=== PATIENT | female | born 1945 | race Two or more races ===

== ENCOUNTER 2017-03-24 11:07 | Emergency (ER) | payer MEDICAID, MEDICARE ==
[~2017-03-24] VITALS: Ht 170.2 cm; Wt 87.1 kg
[~2017-03-24 11:07] MED LIST: ASPI-247; OYSCO-500 TABLET; SIMV-8; TRIA37.575; [UNRECOGNIZED DRUG - CODE]
[2017-03-24 11:20] VITALS: BP 121/76
[2017-03-24] MEDS ORDERED: KETOROLAC TROMETH 30 MG/ML 1ML VIAL IM ONE (11:30)
== END 2017-03-24 13:15 | disposition home or self-care (01) ==
LOC: ER 11:32
DX: S16.1XXA Strain of muscle, fascia and tendon at neck level, initial encounter (principal); M47.892 Other spondylosis, cervical region; M47.896 Other spondylosis, lumbar region; E78.5 Hyperlipidemia, unspecified; I10 Essential (primary) hypertension; W19.XXXA Unspecified fall, initial encounter; Y93.89 Activity, other specified; Y99.8 Other external cause status; Y92.89 Other specified places as the place of occurrence of the external cause; Z79.82 Long term (current) use of aspirin
CPT/HCPCS: 72040; 72220; 96372; 99284; J1885

== ENCOUNTER 2017-09-03 15:01 | Emergency (ER) | payer OTHER, MEDICAID ==
[~2017-09-03] VITALS: Ht 170.2 cm; Wt 88.5 kg
[2017-09-03 15:36] VITALS: BP 125/67
== END 2017-09-03 16:03 | disposition home or self-care (01) ==
LOC: ER 15:08
DX: L01.00 Impetigo, unspecified (principal); E78.5 Hyperlipidemia, unspecified; I10 Essential (primary) hypertension; Z90.710 Acquired absence of both cervix and uterus

== ENCOUNTER 2019-05-13 17:48 | Emergency (ER) | payer OTHER, MEDICAID ==
[~2019-05-13] VITALS: Ht 172.7 cm; Wt 84.4 kg
[~2019-05-13 17:48] MED LIST changes: +TRIA37.55; -TRIA37.575
[2019-05-13 17:59] VITALS: BP 128/84
[2019-05-14] MEDS ORDERED: ACETAMINOPHEN 325 MG TAB PO ONE (01:15)
== END 2019-05-14 01:39 | disposition home or self-care (01) ==
LOC: ER 17:57
DX: M54.5 Low back pain (principal); M25.552 Pain in left hip; M25.551 Pain in right hip; E78.5 Hyperlipidemia, unspecified; I10 Essential (primary) hypertension; Z90.710 Acquired absence of both cervix and uterus; Z79.82 Long term (current) use of aspirin; Z79.899 Other long term (current) drug therapy; W10.8XXA Fall (on) (from) other stairs and steps, initial encounter; Y93.89 Activity, other specified; Y99.8 Other external cause status; Y92.89 Other specified places as the place of occurrence of the external cause
CPT/HCPCS: 72100; 73502; 73560

== ENCOUNTER → 2020-02-28 | Emergency (ER) | payer OTHER, MEDICAID ==
[~2020-02-28] VITALS: Ht 170.2 cm; Wt 81.6 kg
[~2020-02-28] MED LIST changes: +HYDROcodone-ACET 5/325MG TAB PO ONE
[2020-02-28 18:10] LABS: Basophils # (auto) 0.1 10 ^3/uL (0-0.2); Basophils % (auto) 0.8 % (0.0-2.0); Eosinophils # (auto) 0.1 10 ^3/uL (0-0.8); Hematocrit 40.2 % (36.0-46.0); Hemoglobin 13.6 g/dL (12.2-16.2); Lymphocytes % (auto) 29.8 % (10.0-50.0); Mean Corpuscular Hemoglobin 29.4 pg (28.0-32.0); Mean Corpuscular Volume 86.6 fL (80.0-100.0); Monocytes # (auto) 0.5 10 ^3/uL (0-1.3); Monocytes % (auto) 7.1 % (0.0-12.0); Neutrophils % (auto) 60.3 % (37.0-80.0); Nucleated Red Blood Cells % 0.1 %; Platelet Count (auto) 185 10^3/uL (140-450); Red Blood Cells 4.64 10^6/uL (4.0-5.20); Red Cell Distribution Width 14.6 % (11.8-14.3); White Blood Cell 6.6 10^3/uL (4.4-10.8)
[2020-02-28 18:30] LABS: Albumin 3.6 g/dL (3.4-5.0); Calcium 9.2 mg/dL (8.5-10.1); Potassium 3.2 mmol/L (3.5-5.1)
[2020-02-28 18:33] LABS: BUN/Creatinine Ratio 20.5; Bilirubin, Total 0.6 mg/dL (0.2-1.0); Total Protein 7.1 g/dL (6.4-8.2)
[2020-02-28 19:28] LABS: Urine Bacteria NONE SEEN /hpf (None Seen); Urine Blood Negative /uL (Negative); Urine Specific Gravity 1.007 (1.001-1.035); Urine WBC 2 /hpf (0 - 5)
[2020-02-28 22:15] VITALS: BP 122/60
== END | disposition home or self-care (01) ==
LOC: EDUNIT# 17:36 → ER 17:46 → EDBD 17:46
DX: S70.01XA Contusion of right hip, initial encounter (principal); J44.9 Chronic obstructive pulmonary disease, unspecified; E78.5 Hyperlipidemia, unspecified; I10 Essential (primary) hypertension; Z90.710 Acquired absence of both cervix and uterus; W01.0XXA Fall on same level from slipping, tripping and stumbling without subsequent striking against object, initial encounter; Y93.89 Activity, other specified; Y92.89 Other specified places as the place of occurrence of the external cause; Y99.8 Other external cause status
CPT/HCPCS: 36415; 73502; 80053; 81001; 85025

== ENCOUNTER 2020-10-23 14:45 | Inpatient (IN) | payer OTHER, MEDICAID ==
[~2020-10-23] VITALS: Ht 170.2 cm; Wt 75.9 kg
[~2020-10-23 14:45] MED LIST changes: -HYDROcodone-ACET 5/325MG TAB PO ONE
[2020-10-23] MEDS ORDERED: ZINC SULFATE 220mg CAP or TAB PO ONE (15:00)
[2020-10-23] MEDS ORDERED: DexAMETHasone SOD PHOS 10MG/1ML VIAL INJ IV ONE (15:00)
[2020-10-23] MEDS ORDERED: ASCORBIC ACID 500 MG TAB PO ONE (15:00)
[2020-10-23] MEDS ORDERED: DOXYCYCLINE 100MG/250ML 250 ML IV ONE (15:00)
[2020-10-23 15:59] LABS: Basophils # (auto) 0 10 ^3/uL (0-0.2); Basophils % (auto) 0.1 % (0.0-2.0); Eosinophils # (auto) 0 10 ^3/uL (0-0.8); Hematocrit 39.1 % (36.0-46.0); Hemoglobin 13.6 g/dL (12.2-16.2); Lymphocytes # (auto) 0.9 10 ^3/uL (0.4-5.4); Lymphocytes % (auto) 8.2 % (10.0-50.0); Mean Corpuscular Hemoglobin 28.5 pg (28.0-32.0); Mean Corpuscular Hgb Conc. 34.6 g/dL (32.0-36.0); Mean Corpuscular Volume 82.1 fL (80.0-100.0); Monocytes # (auto) 0.2 10 ^3/uL (0-1.3); Monocytes % (auto) 1.9 % (0.0-12.0); Neutrophils # (auto) 9.3 10 ^3/uL (1.6-8.6); Neutrophils % (auto) 89.8 % (37.0-80.0); Platelet Count (auto) 318 10^3/uL (140-450); Red Blood Cells 4.76 10^6/uL (4.0-5.20); Red Cell Distribution Width 13.4 % (11.8-14.3); White Blood Cell 10.4 10^3/uL (4.4-10.8)
[2020-10-23 16:24] LABS: Albumin 2.7 g/dL (3.4-5.0); Anion Gap 11 (5-15); Blood Urea Nitrogen 7 mg/dL (7-18); Calcium 8.6 mg/dL (8.5-10.1); Carbon Dioxide 27 mmol/L (21-32); Chloride 90 mmol/L (98-107); Glucose 166 mg/dL (74-106); Sodium 128 mmol/L (136-145)
[2020-10-23] MEDS ORDERED: ONDANSETRON HCL 4 MG/2 ML VIAL ONE (16:28)
[2020-10-23 16:33] LABS: Alanine Aminotransferase 53 U/L (13-56); Alkaline Phosphatase 97 U/L (45-117); Aspartate Aminotransferase 54 U/L (15-37); Bilirubin, Total 1.1 mg/dL (0.2-1.0); GFR African American 92 mL/min; GFR Non-African American 76 mL/min; Lactate Dehydrogenase 416 U/L (84-246); Total Protein 7.5 g/dL (6.4-8.2)
[2020-10-23 16:45] LABS: CRP High Sensitivity > 19.0 mg/dL (< 0.3)
[2020-10-23] MEDS ORDERED: ONDANSETRON HCL 4 MG/2 ML VIAL IV ONE (16:45)
[2020-10-23 16:47] LABS: Potassium 2.6 mmol/L (3.5-5.1)
[2020-10-23] MEDS ORDERED: POTASSIUM CHLORIDE 40 MEQ, LIDOCAINE 1% (LOCAL ANESTH.) 4 ML in SODIUM CHL 0.9% 250 ML IV ONE (17:00)
[2020-10-23] MEDS ORDERED: POTASSIUM EFFERVESENT TAB 25 MEQ PO ONE (17:30)
[2020-10-23] MEDS ORDERED: REMDESIVIR PER PHARMACY IV SCH (17:30)
[2020-10-23] MEDS ORDERED: ACETAMINOPHEN 500 MG TAB PO PRN (17:30)
[2020-10-23] MEDS ORDERED: NITROGLYCERIN 0.4 MG SL TAB SL PRN (17:30)
[2020-10-23] MEDS ORDERED: MORPHINE SULF INJ 2 MG/ML SYRINGE 1ML IV PRN (17:30)
[2020-10-23] MEDS ORDERED: REMDESIVIR 200 MG in NS 210ml LOADING DOSE ADULT IV ONE (20:00)
[2020-10-23 20:57] LABS: Cholesterol 75 mg/dL (< 200); HDL Cholesterol 25 mg/dL (40-59); LDL Cholesterol 46 mg/dL (< 100); Triglycerides 81 mg/dL (< 150)
[2020-10-23] MEDS: ALBUTEROL SULF HFA 90MCG INH 200DOSE IN SCH (21:40)
[2020-10-23] MEDS: BUDESONIDE (INHALATION) 180 MCG IH IN SCH (21:40)
[2020-10-23] MEDS: DOXYCYCLINE 100MG/250ML 250 ML IV SCH (22:06)
[2020-10-24] VITALS: BP 117/55
[2020-10-24 02:59] VITALS: BP 124/49
[2020-10-24 03:15] VITALS: BP 118/55
[2020-10-24 03:45] VITALS: BP 112/55
[2020-10-24 04:30] VITALS: BP 117/53
[2020-10-24] MEDS: BUDESONIDE (INHALATION) 180 MCG IH IN SCH ×2 (07:00→22:37)
[2020-10-24] MEDS: ALBUTEROL SULF HFA 90MCG INH 200DOSE IN SCH ×3 (07:00→22:37)
[2020-10-24 08:37] LABS: Basophils # (auto) 0 10 ^3/uL (0-0.2); Basophils % (auto) 0.1 % (0.0-2.0); Eosinophils # (auto) 0 10 ^3/uL (0-0.8); Hematocrit 35.6 % (36.0-46.0); Hemoglobin 11.9 g/dL (12.2-16.2); Lymphocytes # (auto) 0.5 10 ^3/uL (0.4-5.4); Lymphocytes % (auto) 6.6 % (10.0-50.0); Mean Corpuscular Hemoglobin 27.9 pg (28.0-32.0); Mean Corpuscular Hgb Conc. 33.5 g/dL (32.0-36.0); Mean Corpuscular Volume 83.4 fL (80.0-100.0); Monocytes # (auto) 0.2 10 ^3/uL (0-1.3); Monocytes % (auto) 3.1 % (0.0-12.0); Neutrophils # (auto) 6.3 10 ^3/uL (1.6-8.6); Neutrophils % (auto) 90.2 % (37.0-80.0); Platelet Count (auto) 315 10^3/uL (140-450); Red Blood Cells 4.27 10^6/uL (4.0-5.20); Red Cell Distribution Width 13.7 % (11.8-14.3)
[2020-10-24] MEDS ORDERED: cefTRIAXone 1GM/50ML D5W 50 ML IV SCH (09:00)
[2020-10-24 09:02] LABS: Albumin 2.4 g/dL (3.4-5.0); Potassium 3.8 mmol/L (3.5-5.1)
[2020-10-24 09:08] LABS: BUN/Creatinine Ratio 15.5; Bilirubin, Total 0.6 mg/dL (0.2-1.0); Total Protein 6.6 g/dL (6.4-8.2)
[2020-10-24] MEDS ORDERED: ENOXAPARIN SOD 40 MG/0.4 ML SYRINGE SC SCH (10:00)
[2020-10-24] MEDS: ASCORBIC ACID 1,000 MG TAB PO SCH (10:43)
[2020-10-24] MEDS: ZINC SULFATE 220mg CAP or TAB PO SCH (10:43)
[2020-10-24] MEDS: DexAMETHasone SOD PHOS 10MG/1ML VIAL INJ IV SCH (10:43)
[2020-10-24] MEDS: DOXYCYCLINE 100MG/250ML 250 ML IV SCH (10:43)
[2020-10-24] MEDS: CHOLECALCIFEROL (VITD3) 2,000 UNIT CAP PO SCH (10:43)
[2020-10-24] MEDS: guaiFENesin-CODEINE Liq 5 ML UD PO PRN ×2 (13:28→21:20)
[2020-10-24] MEDS ORDERED: VANCOMYCIN PER PHARMACY 0 MG IV SCH ×2 (14:30→14:45)
[2020-10-24] MEDS ORDERED: PIPERACILLIN-TAZOB 3.375GM 100 ML IV ONE ×2 (14:30→14:45)
[2020-10-24] MEDS: REMDESIVIR 100mg in NS 230ml DAILYx4DAYS (NO VENT) IV SCH (17:25)
[2020-10-24] MEDS ORDERED: MORPHINE SULF INJ 2 MG/ML SYRINGE 1ML IV PRN (17:45)
[2020-10-24] MEDS ORDERED: HYDROcodone-ACET 5/325MG TAB PO PRN (17:45)
[2020-10-24] MEDS ORDERED: MORPHINE SULF INJ 2 MG/ML SYRINGE 1ML ONE (17:52)
[2020-10-24] MEDS: VANCOMYCIN 1GM/250ML 250 ML IV SCH (20:28)
[2020-10-24] MEDS ORDERED: ATORVASTATIN 20 MG TAB PO SCH (22:00)
[2020-10-24] MEDS: FAMOTIDINE (10MG/ML) 2ML VL IV SCH (22:15)
[2020-10-24] MEDS: ENOXAPARIN SOD 40 MG/0.4 ML SYRINGE SC SCH (22:15)
[2020-10-24] MEDS ORDERED: SODIUM BICARBONATE 8.4% INJ 50ML SYRINGE ONE (23:10)
[2020-10-24] MEDS: PIPERACILLIN-TAZOB 3.375GM 100 ML IV SCH (23:56)
[2020-10-25] MEDS ORDERED: PIPERACILLIN-TAZOB 3.375GM 100 ML IV SCH
[2020-10-25] MEDS: PIPERACILLIN-TAZOB 3.375GM 100 ML IV SCH ×3 (05:54→17:36)
[2020-10-25 06:39] LABS: Urine Bacteria NONE SEEN /hpf (None Seen); Urine Blood Negative /uL (Negative); Urine WBC 2 /hpf (0 - 5)
[2020-10-25] MEDS: BUDESONIDE (INHALATION) 180 MCG IH IN SCH ×2 (07:10→22:14)
[2020-10-25] MEDS: ALBUTEROL SULF HFA 90MCG INH 200DOSE IN SCH ×3 (07:10→22:14)
[2020-10-25 08:03] LABS: Albumin 2.3 g/dL (3.4-5.0); Calcium 9.2 mg/dL (8.5-10.1); Potassium 3.6 mmol/L (3.5-5.1)
[2020-10-25 08:06] LABS: BUN/Creatinine Ratio 24.6; Bilirubin, Total 0.5 mg/dL (0.2-1.0); Total Protein 6.6 g/dL (6.4-8.2)
[2020-10-25] MEDS: VANCOMYCIN 1GM/250ML 250 ML IV SCH (08:20)
[2020-10-25 09:27] LABS: Free T4 (Free Thyroxine) 1.33 ng/dL (0.89-1.76); T3 Total 0.53 ng/mL (0.60-1.81)
[2020-10-25] MEDS ORDERED: ASPirin 81 mg TAB PO SCH (10:00)
[2020-10-25] MEDS: ASCORBIC ACID 1,000 MG TAB PO SCH (10:20)
[2020-10-25] MEDS: FAMOTIDINE (10MG/ML) 2ML VL IV SCH ×2 (10:20→22:27)
[2020-10-25] MEDS: ENOXAPARIN SOD 40 MG/0.4 ML SYRINGE SC SCH (10:20)
[2020-10-25] MEDS: ZINC SULFATE 220mg CAP or TAB PO SCH (10:20)
[2020-10-25] MEDS: CHOLECALCIFEROL (VITD3) 2,000 UNIT CAP PO SCH (10:20)
[2020-10-25] MEDS: DexAMETHasone SOD PHOS 10MG/1ML VIAL INJ IV SCH (10:20)
[2020-10-25] MEDS ORDERED: FUROSEMIDE 20 MG/2 ML VIAL IV ONE (16:45)
[2020-10-25] MEDS ORDERED: POTASSIUM CHL 10 Meq TABLET PO ONE (16:45)
[2020-10-25] MEDS ORDERED: DEXTROSE (50%) 50ML SYRG IV PRN (16:45)
[2020-10-25] MEDS: REMDESIVIR 100mg in NS 230ml DAILYx4DAYS (NO VENT) IV SCH (17:08)
[2020-10-25] MEDS: InsuLIN REG 1unit/0.01ml Soln (100units/ml) SC SCH ×2 (17:28→22:33)
[2020-10-25] MEDS: ACCU-CHEK COMFORT CURVE STRIP VI SCH ×2 (17:28→22:27)
[2020-10-25] MEDS ORDERED: IOHEXOL 350 MG/ML 100ML IJ ONE (17:58)
[2020-10-25] MEDS: ENOXAPARIN SOD 80 MG/0.8ML SYRINGE SC SCH (22:27)
[2020-10-25] MEDS: guaiFENesin-CODEINE Liq 5 ML UD PO PRN (23:13)
[2020-10-26] MEDS: PIPERACILLIN-TAZOB 3.375GM 100 ML IV SCH ×4 (00:41→18:00)
[2020-10-26] MEDS: BUDESONIDE (INHALATION) 180 MCG IH IN SCH ×2 (06:25→21:14)
[2020-10-26] MEDS: ALBUTEROL SULF HFA 90MCG INH 200DOSE IN SCH ×2 (06:25→21:14)
[2020-10-26 06:30] LABS: Potassium 3.4 mmol/L (3.5-5.1)
[2020-10-26 06:38] LABS: Albumin 2.4 g/dL (3.4-5.0); BUN/Creatinine Ratio 28.9; Bilirubin, Total 0.6 mg/dL (0.2-1.0); Calcium 9.2 mg/dL (8.5-10.1); Magnesium 2.5 mg/dL (1.6-2.6); Total Protein 6.3 g/dL (6.4-8.2)
[2020-10-26] MEDS: InsuLIN REG 1unit/0.01ml Soln (100units/ml) SC SCH ×3 (07:01→23:54)
[2020-10-26] MEDS: ACCU-CHEK COMFORT CURVE STRIP VI SCH ×3 (07:01→23:19)
[2020-10-26] MEDS: DexAMETHasone SOD PHOS 10MG/1ML VIAL INJ IV SCH (12:40)
[2020-10-26] MEDS: FUROSEMIDE 20 MG/2 ML VIAL IV SCH (12:41)
[2020-10-26] MEDS: ZINC SULFATE 220mg CAP or TAB PO SCH (12:41)
[2020-10-26] MEDS: CHOLECALCIFEROL (VITD3) 2,000 UNIT CAP PO SCH (12:43)
[2020-10-26] MEDS: FAMOTIDINE (10MG/ML) 2ML VL IV SCH ×2 (12:43→23:19)
[2020-10-26] MEDS: ASCORBIC ACID 1,000 MG TAB PO SCH (12:43)
[2020-10-26] MEDS: POTASSIUM CHL 10 Meq TABLET PO SCH (12:43)
[2020-10-26] MEDS: ENOXAPARIN SOD 80 MG/0.8ML SYRINGE SC SCH ×2 (13:00→23:19)
[2020-10-26] MEDS ORDERED: POTASSIUM CHL 20 Meq TABLET PO ONE (16:45)
[2020-10-26] MEDS: REMDESIVIR 100mg in NS 230ml DAILYx4DAYS (NO VENT) IV SCH (16:54)
[2020-10-27] MEDS: PIPERACILLIN-TAZOB 3.375GM 100 ML IV SCH ×4 (00:56→20:13)
[2020-10-27] MEDS: ALBUTEROL SULF HFA 90MCG INH 200DOSE IN SCH ×2 (06:00→22:42)
[2020-10-27 06:05] LABS: Basophils # (auto) 0 10 ^3/uL (0-0.2); Basophils % (auto) 0.4 % (0.0-2.0); Eosinophils # (auto) 0 10 ^3/uL (0-0.8); Hematocrit 38.5 % (36.0-46.0); Hemoglobin 12.9 g/dL (12.2-16.2); Lymphocytes # (auto) 0.8 10 ^3/uL (0.4-5.4); Lymphocytes % (auto) 11.7 % (10.0-50.0); Mean Corpuscular Hemoglobin 27.9 pg (28.0-32.0); Mean Corpuscular Hgb Conc. 33.5 g/dL (32.0-36.0); Mean Corpuscular Volume 83.3 fL (80.0-100.0); Monocytes # (auto) 0.5 10 ^3/uL (0-1.3); Monocytes % (auto) 6.3 % (0.0-12.0); Neutrophils # (auto) 5.9 10 ^3/uL (1.6-8.6); Neutrophils % (auto) 81.6 % (37.0-80.0); Platelet Count (auto) 467 10^3/uL (140-450); Red Blood Cells 4.62 10^6/uL (4.0-5.20); Red Cell Distribution Width 13.7 % (11.8-14.3); White Blood Cell 7.2 10^3/uL (4.4-10.8)
[2020-10-27 06:12] LABS: INR 1.28 (0.9-1.15)
[2020-10-27 06:36] LABS: Potassium 3.6 mmol/L (3.5-5.1)
[2020-10-27 06:44] LABS: BUN/Creatinine Ratio 33.3; Calcium 9.1 mg/dL (8.5-10.1)
[2020-10-27] MEDS: ACCU-CHEK COMFORT CURVE STRIP VI SCH ×4 (07:00→21:57)
[2020-10-27] MEDS: InsuLIN REG 1unit/0.01ml Soln (100units/ml) SC SCH ×4 (07:00→21:56)
[2020-10-27] MEDS: BUDESONIDE (INHALATION) 180 MCG IH IN SCH ×2 (07:06→22:42)
[2020-10-27] MEDS: CHOLECALCIFEROL (VITD3) 2,000 UNIT CAP PO SCH (10:00)
[2020-10-27] MEDS: ZINC SULFATE 220mg CAP or TAB PO SCH (10:00)
[2020-10-27] MEDS: FAMOTIDINE (10MG/ML) 2ML VL IV SCH ×2 (10:00→21:58)
[2020-10-27] MEDS: DexAMETHasone SOD PHOS 10MG/1ML VIAL INJ IV SCH (10:00)
[2020-10-27] MEDS: ASCORBIC ACID 1,000 MG TAB PO SCH (10:00)
[2020-10-27] MEDS: FUROSEMIDE 20 MG/2 ML VIAL IV SCH (10:00)
[2020-10-27] MEDS: ENOXAPARIN SOD 80 MG/0.8ML SYRINGE SC SCH ×2 (10:00→21:57)
[2020-10-27] MEDS: POTASSIUM CHL 10 Meq TABLET PO SCH (10:00)
[2020-10-27] MEDS: REMDESIVIR 100mg in NS 230ml DAILYx4DAYS (NO VENT) IV SCH (17:31)
[2020-10-27] MEDS: guaiFENesin-CODEINE Liq 5 ML UD PO PRN (23:17)
[2020-10-28] MEDS: PIPERACILLIN-TAZOB 3.375GM 100 ML IV SCH ×4 (01:57→18:09)
[2020-10-28] MEDS: BUDESONIDE (INHALATION) 180 MCG IH IN SCH ×3 (02:29→19:41)
[2020-10-28 03:00] VITALS: BP 148/76
[2020-10-28] MEDS: ALBUTEROL SULF HFA 90MCG INH 200DOSE IN SCH (06:00)
[2020-10-28] MEDS: InsuLIN REG 1unit/0.01ml Soln (100units/ml) SC SCH ×4 (06:20→22:17)
[2020-10-28] MEDS: ACCU-CHEK COMFORT CURVE STRIP VI SCH ×4 (06:20→21:16)
[2020-10-28] MEDS: FUROSEMIDE 20 MG/2 ML VIAL IV SCH (10:42)
[2020-10-28] MEDS: ENOXAPARIN SOD 80 MG/0.8ML SYRINGE SC SCH ×2 (10:43→21:16)
[2020-10-28] MEDS: POTASSIUM CHL 10 Meq TABLET PO SCH (10:43)
[2020-10-28] MEDS: ASCORBIC ACID 1,000 MG TAB PO SCH (10:43)
[2020-10-28] MEDS: CHOLECALCIFEROL (VITD3) 2,000 UNIT CAP PO SCH (10:43)
[2020-10-28] MEDS: FAMOTIDINE (10MG/ML) 2ML VL IV SCH ×2 (10:43→21:17)
[2020-10-28] MEDS: ZINC SULFATE 220mg CAP or TAB PO SCH (10:43)
[2020-10-28] MEDS ORDERED: ALBUTEROL SULF HFA 90MCG INH 200DOSE IN PRN (10:45)
--- NOTE | 2020-10-28 11:41 | NUR ---
Nutrition Assessment Est energy needs 9151-3818 kcal (20-23 kcal/kg BW 81.6kg) Est protein needs 59-77g (1-1.3g/kg IBW 59kg) Will monitor and reassess prn. Addendum: 10/28/20 at [address] Amended: Links added.
[2020-10-28] MEDS: DexAMETHasone SOD PHOS 10MG/1ML VIAL INJ IV SCH (11:45)
[2020-10-28] MEDS: ALBUTEROL SULF HFA 90MCG INH 200DOSE IN PRN (19:41)
[2020-10-28 23:00] VITALS: BP 126/65
[2020-10-28 23:45] VITALS: BP 126/65
[2020-10-28] MEDS ORDERED: NITROGLYCERIN 0.4 MG SL TAB SL PRN (23:45)
[2020-10-28] MEDS ORDERED: DEXTROSE (50%) 50ML SYRG IV PRN (23:45)
[2020-10-28] MEDS ORDERED: MORPHINE SULF INJ 2 MG/ML SYRINGE 1ML IV PRN (23:45)
[2020-10-28] MEDS ORDERED: guaiFENesin-CODEINE Liq 5 ML UD PO PRN (23:45)
[2020-10-29] MEDS: PIPERACILLIN-TAZOB 3.375GM 100 ML IV SCH ×5 (00:27→23:19)
[2020-10-29 05:00] VITALS: BP 133/74
[2020-10-29] MEDS: ALBUTEROL SULF HFA 90MCG INH 200DOSE IN SCH ×2 (07:00→22:31)
[2020-10-29] MEDS: InsuLIN REG 1unit/0.01ml Soln (100units/ml) SC SCH ×4 (07:00→21:57)
[2020-10-29] MEDS: ACCU-CHEK COMFORT CURVE STRIP VI SCH ×4 (07:01→21:57)
[2020-10-29 08:00] VITALS: BP 124/62
[2020-10-29 08:03] LABS: Magnesium 2.6 mg/dL (1.6-2.6); Potassium 3.3 mmol/L (3.5-5.1)
[2020-10-29 08:13] LABS: CRP High Sensitivity 1.61 mg/dL (< 0.3)
[2020-10-29 09:00] VITALS: BP 124/62
[2020-10-29] MEDS: BUDESONIDE (INHALATION) 180 MCG IH IN SCH ×2 (09:38→22:31)
[2020-10-29] MEDS: FUROSEMIDE 20 MG/2 ML VIAL IV SCH (10:00)
--- NOTE | 2020-10-29 10:00 | NUR ---
Medication (Lasix) Held Pt's morning medication Lasix was held due to her low potassium level of 3.3 mmol/L. Will continue to monitor her potassium levels.
[2020-10-29] MEDS: CHOLECALCIFEROL (VITD3) 2,000 UNIT CAP PO SCH (10:54)
[2020-10-29] MEDS: ZINC SULFATE 220mg CAP or TAB PO SCH (10:54)
[2020-10-29] MEDS: POTASSIUM CHL 10 Meq TABLET PO SCH (10:55)
[2020-10-29] MEDS: DexAMETHasone SOD PHOS 10MG/1ML VIAL INJ IV SCH (10:55)
[2020-10-29] MEDS: ASCORBIC ACID 1,000 MG TAB PO SCH (10:55)
[2020-10-29] MEDS: FAMOTIDINE (10MG/ML) 2ML VL IV SCH ×2 (10:56→21:58)
[2020-10-29] MEDS: ENOXAPARIN SOD 80 MG/0.8ML SYRINGE SC SCH ×2 (10:56→21:57)
[2020-10-29 13:00] VITALS: BP 120/65
--- NOTE | 2020-10-29 15:46 | NUR ---
Patient is able to ambualte with SBA in room. D/C from P.T. Nursing to assist patient as needed.
[2020-10-29] MEDS ORDERED: POTASSIUM CHL 20 Meq TABLET PO ONE (16:15)
[2020-10-29 17:00] VITALS: BP 104/76
[2020-10-29] MEDS: HYDROcodone-ACET 5/325MG TAB PO PRN (21:57)
[2020-10-29 22:00] VITALS: BP 118/65
[2020-10-30] VITALS (7 sets, daily range): BP systolic 102–130; BP diastolic 57–72
--- NOTE | 2020-10-30 04:14 | NUR ---
IV insertion IV access obtained, via clean sterile technique by inserting 22 gauge catheter at left wrist after 1 attempt. IV secured properly. No trauma to site. Patient tolerated well.
[2020-10-30] MEDS: PIPERACILLIN-TAZOB 3.375GM 100 ML IV SCH ×4 (05:54→23:49)
[2020-10-30] MEDS: InsuLIN REG 1unit/0.01ml Soln (100units/ml) SC SCH ×4 (06:40→20:50)
[2020-10-30] MEDS: ACCU-CHEK COMFORT CURVE STRIP VI SCH ×4 (06:40→20:01)
[2020-10-30] MEDS: ALBUTEROL SULF HFA 90MCG INH 200DOSE IN SCH (07:50)
--- NOTE | 2020-10-30 08:00 | NUR ---
ASSESSMENT NOTE PT IS ALERT ORIENTED X4, RESTING IN BED COMFORTABLY, NO DISTRESS NOTED, ABLE TO SELF REPOSITION AND VERBALIS HER DEMANDS, PT SPEAK TUNISIAN AND YORUBA, OXYGEN NON REBREATHER MASK 10 L SAT AT 93 %, NO DISTRESS NOTED, PAIN 0/10, CALL LIGHT WITHIN REACH
[2020-10-30] MEDS: BUDESONIDE (INHALATION) 180 MCG IH IN SCH ×2 (09:04→21:21)
[2020-10-30] MEDS: FUROSEMIDE 20 MG/2 ML VIAL IV SCH (09:53)
[2020-10-30] MEDS: DexAMETHasone SOD PHOS 10MG/1ML VIAL INJ IV SCH (09:53)
[2020-10-30] MEDS: CHOLECALCIFEROL (VITD3) 2,000 UNIT CAP PO SCH (09:54)
[2020-10-30] MEDS: ASCORBIC ACID 1,000 MG TAB PO SCH (09:54)
[2020-10-30] MEDS: POTASSIUM CHL 10 Meq TABLET PO SCH (09:54)
[2020-10-30] MEDS: ZINC SULFATE 220mg CAP or TAB PO SCH (09:54)
[2020-10-30] MEDS: FAMOTIDINE (10MG/ML) 2ML VL IV SCH ×2 (09:54→20:00)
[2020-10-30] MEDS: ENOXAPARIN SOD 80 MG/0.8ML SYRINGE SC SCH ×2 (09:55→20:00)
--- NOTE | 2020-10-30 10:25 | NUR ---
DR TRINIDAD AT BED SIDE FOLLOWING UP ON PT, SUGGESTED TO DECREASE PT TO 8 L AND SWITCH HER ON OXYMIZER, AND REASSESS PT AGAIN, CONTINUE MONITORING
--- NOTE | 2020-10-30 11:00 | NUR ---
INCENTIVE SPIROMETER PATIENT IS COMPLYING IN HER TREATMENT, USING TH EIS MACHINE TOLERATED WHILE AWAKE
[2020-10-30] MEDS: ONDANSETRON HCL 4 MG/2 ML VIAL IV PRN (12:07)
--- NOTE | 2020-10-30 13:00 | NUR ---
PT IS ABLE TO AMBULATE TO BATHROOM NEEDED, ORIENTED TO CALL LIGHT
[2020-10-30] MEDS ORDERED: POTASSIUM CHL 20 Meq TABLET PO ONE (15:30)
--- NOTE | 2020-10-30 18:49 | NUR ---
PT CONTINUE STABLE, CONTINUE MONITORING
--- NOTE | 2020-10-30 19:30 | NUR ---
Opening Shift Note Assumed care of patient, awake and alert. No S/S of distress/SOB or pain. Insructed on POC and to callfor assist PRN, will continue to monitor for changes Q1hr and PRN. Fall and safety precautions in place. Call light within reach.
[2020-10-30] MEDS: HYDROcodone-ACET 5/325MG TAB PO PRN (21:02)
[2020-10-30] MEDS: ALBUTEROL SULF HFA 90MCG INH 200DOSE IN PRN (21:22)
[2020-10-31 05:27] VITALS: BP 141/75
[2020-10-31] MEDS: InsuLIN REG 1unit/0.01ml Soln (100units/ml) SC SCH ×4 (06:01→21:46)
[2020-10-31] MEDS: ACCU-CHEK COMFORT CURVE STRIP VI SCH ×4 (06:01→21:49)
[2020-10-31] MEDS: PIPERACILLIN-TAZOB 3.375GM 100 ML IV SCH ×4 (06:01→23:50)
[2020-10-31] MEDS: BUDESONIDE (INHALATION) 180 MCG IH IN SCH ×2 (06:57→22:00)
[2020-10-31 08:00] VITALS: BP 125/71
--- NOTE | 2020-10-31 08:00 | NUR ---
ASSESSMENT NOTE PT IS ALERT ORIENTED X4, RESTING IN BED COMFORTABLY, NO DISTRESS NOTED, ABLE TO SELF REPOSITION AND VERBALIS HER DEMANDS, PT SPEAK MALIAN AND TAMAZIGHT, OXYGEN NON REBREATHER MASK 10 L SAT AT 93 %, NO DISTRESS NOTED, PAIN 0/10, CALL LIGHT WITHIN REACH
[2020-10-31 09:00] VITALS: BP 132/74
--- NOTE | 2020-10-31 09:00 | NUR ---
OXYMIZER SWITCH PT ON OXYGEN OXYMIZER 8 L , SAT AT 93 TO 94 % , CONTINUE MONITORING
[2020-10-31] MEDS: DexAMETHasone SOD PHOS 10MG/1ML VIAL INJ IV SCH (09:14)
[2020-10-31] MEDS: ZINC SULFATE 220mg CAP or TAB PO SCH (09:14)
[2020-10-31] MEDS: FAMOTIDINE (10MG/ML) 2ML VL IV SCH ×2 (09:14→21:49)
[2020-10-31] MEDS: CHOLECALCIFEROL (VITD3) 2,000 UNIT CAP PO SCH (09:15)
[2020-10-31] MEDS: ENOXAPARIN SOD 80 MG/0.8ML SYRINGE SC SCH ×2 (09:15→21:49)
[2020-10-31] MEDS: ASCORBIC ACID 1,000 MG TAB PO SCH (09:15)
[2020-10-31] MEDS: POTASSIUM CHL 10 Meq TABLET PO SCH (09:15)
[2020-10-31] MEDS: FUROSEMIDE 20 MG/2 ML VIAL IV SCH (09:16)
--- NOTE | 2020-10-31 10:00 | NUR ---
DR TRINIDAD CALLED TO FOLLOW UP ON PT, UPDATE GIVEN TO HER
--- NOTE | 2020-10-31 11:34 | NUR ---
Nutrition Followup Note Wt 61.0 kg Pt is in covid isolation, s/p supplemental O2. pt is currently on cardiac diet with adequate PO of 75% x 6 per RN doc Est energy needs 1531-9755 kcal (20-23 kcal/kg BW 81.6kg) Est protein needs 59-77g (1-1.3g/kg IBW 59kg) Will monitor and reassess prn. Labs: no new labs today, POC GLU 126 H . BM: Pt had 2 BM today per RN note Skin: BS 21 low risk, full details in farm or ranch animal caretaker note PES: Overweight aeb pt with a BMI of 28.2kg/m2 r/t caloric intake in excess of needs Comments: Will continue to monitor PO intake, skin status, pertinent labs and weight trends. Will f/u in 3-5 days 1) refer to O[employer] dietitian on DC. 2) Continue current plan of care
[2020-10-31 13:00] VITALS: BP 124/59
[2020-10-31] MEDS: ALBUTEROL SULF HFA 90MCG INH 200DOSE IN PRN ×2 (14:28→23:25)
--- NOTE | 2020-10-31 15:31 | NUR ---
BM PT WAS ABLE TO AMBULATE TO BATHROOM WITH LONG OXYGEN TUBING, TO HAVE BM, THEN BACK TO BED, NO DISTRESS NOTED, TOLERATED WELL
[2020-10-31] MEDS: HYDROcodone-ACET 5/325MG TAB PO PRN (17:39)
[2020-10-31 17:43] VITALS: BP 97/50
--- NOTE | 2020-10-31 18:39 | NUR ---
PT CONTINUE STABLE, NO DISTRESS NOTED, CONTINUE ON 8 L OXYMIZER MONITORING
[2020-10-31 22:00] VITALS: BP 115/72
[2020-11-01 05:00] VITALS: BP 102/65
[2020-11-01] MEDS: InsuLIN REG 1unit/0.01ml Soln (100units/ml) SC SCH ×4 (05:23→21:07)
[2020-11-01] MEDS: ACCU-CHEK COMFORT CURVE STRIP VI SCH ×4 (05:24→21:17)
[2020-11-01] MEDS: PIPERACILLIN-TAZOB 3.375GM 100 ML IV SCH ×4 (05:24→23:23)
[2020-11-01 06:40] LABS: Basophils # (auto) 0 10 ^3/uL (0-0.2); Basophils % (auto) 0.3 % (0.0-2.0); Eosinophils # (auto) 0 10 ^3/uL (0-0.8); Eosinophils % (auto) 0.1 % (0.0-7.0); Hemoglobin 13.8 g/dL (12.2-16.2); Lymphocytes # (auto) 1.4 10 ^3/uL (0.4-5.4); Lymphocytes % (auto) 19.3 % (10.0-50.0); Mean Corpuscular Hemoglobin 27.9 pg (28.0-32.0); Mean Corpuscular Hgb Conc. 32.9 g/dL (32.0-36.0); Mean Corpuscular Volume 84.8 fL (80.0-100.0); Monocytes # (auto) 0.6 10 ^3/uL (0-1.3); Monocytes % (auto) 7.8 % (0.0-12.0); Neutrophils # (auto) 5.3 10 ^3/uL (1.6-8.6); Neutrophils % (auto) 72.5 % (37.0-80.0); Nucleated Red Blood Cells % 0.1 %; Platelet Count (auto) 408 10^3/uL (140-450); Red Blood Cells 4.95 10^6/uL (4.0-5.20); Red Cell Distribution Width 14.1 % (11.8-14.3); White Blood Cell 7.4 10^3/uL (4.4-10.8)
--- NOTE | 2020-11-01 06:46 | NUR ---
END OF SHIFT NOTES WILL ENDORSE CARE TO DAY SHIFT RN ,NO S/S OF DISTRESS OR SOB
[2020-11-01 06:50] LABS: Potassium 3.5 mmol/L (3.5-5.1)
[2020-11-01 06:59] LABS: BUN/Creatinine Ratio 28.2; Calcium 9.3 mg/dL (8.5-10.1); Magnesium 2.7 mg/dL (1.6-2.6)
--- NOTE | 2020-11-01 08:00 | NUR ---
Received pt resting in bed, call light within reach, will continue to monitor, pt reports nausea during her breakfast, pt also requesting medication to have a BM, pt reports her last BM 11/07, will continue to monitor pt.
[2020-11-01] MEDS: ONDANSETRON HCL 4 MG/2 ML VIAL IV PRN (08:15)
[2020-11-01 08:30] VITALS: BP 127/56
[2020-11-01] MEDS: BUDESONIDE (INHALATION) 180 MCG IH IN SCH ×2 (10:00→20:40)
[2020-11-01] MEDS: FUROSEMIDE 20 MG/2 ML VIAL IV SCH (10:05)
[2020-11-01] MEDS: FAMOTIDINE (10MG/ML) 2ML VL IV SCH ×2 (10:05→21:19)
[2020-11-01] MEDS: ZINC SULFATE 220mg CAP or TAB PO SCH (10:05)
[2020-11-01] MEDS: DexAMETHasone SOD PHOS 10MG/1ML VIAL INJ IV SCH (10:05)
[2020-11-01] MEDS: ASCORBIC ACID 1,000 MG TAB PO SCH (10:06)
[2020-11-01] MEDS: POTASSIUM CHL 10 Meq TABLET PO SCH (10:06)
[2020-11-01] MEDS: ENOXAPARIN SOD 80 MG/0.8ML SYRINGE SC SCH ×2 (10:06→21:17)
[2020-11-01] MEDS: CHOLECALCIFEROL (VITD3) 2,000 UNIT CAP PO SCH (10:06)
--- NOTE | 2020-11-01 10:57 | NUR ---
Dr. Maria at unit to see pt, doctor informed that pt is requesting medication to have a bowel movement, orders received for colace 100 mg po bid.
[2020-11-01] MEDS ORDERED: DOCUSATE SOD 100 MG CAP PO ONE (11:30)
[2020-11-01 14:34] VITALS: BP 124/70
[2020-11-01] MEDS: ALBUTEROL SULF HFA 90MCG INH 200DOSE IN PRN (16:11)
[2020-11-01 17:12] VITALS: BP 118/71
[2020-11-01] MEDS: DOCUSATE SOD 100 MG CAP PO SCH (21:19)
[2020-11-01] MEDS: ACETAMINOPHEN 500 MG TAB PO PRN (21:20)
[2020-11-01 22:00] VITALS: BP 129/69
[2020-11-02] MEDS: ALBUTEROL SULF HFA 90MCG INH 200DOSE IN PRN ×3 (01:33→23:06)
[2020-11-02 05:00] VITALS: BP 115/75
[2020-11-02] MEDS: InsuLIN REG 1unit/0.01ml Soln (100units/ml) SC SCH ×4 (05:16→21:24)
[2020-11-02] MEDS: ACCU-CHEK COMFORT CURVE STRIP VI SCH ×4 (05:16→21:26)
[2020-11-02] MEDS: PIPERACILLIN-TAZOB 3.375GM 100 ML IV SCH ×4 (05:17→23:23)
--- NOTE | 2020-11-02 06:35 | NUR ---
END OF SHIFT NOTES WILL ENDORSE CARE TO DAY SHIFT RN ,NO S/S OF DISTRESS OR SOB
--- NOTE | 2020-11-02 08:00 | NUR ---
Received pt resting in bed, pt resting comfortably, call light within reach, will continue to monitor pt.
[2020-11-02] MEDS: BUDESONIDE (INHALATION) 180 MCG IH IN SCH ×2 (08:20→23:05)
[2020-11-02 08:59] VITALS: BP 116/60
[2020-11-02] MEDS: DexAMETHasone SOD PHOS 10MG/1ML VIAL INJ IV SCH (09:58)
[2020-11-02] MEDS: FAMOTIDINE (10MG/ML) 2ML VL IV SCH ×2 (09:59→21:24)
[2020-11-02] MEDS: DOCUSATE SOD 100 MG CAP PO SCH ×2 (09:59→21:25)
[2020-11-02] MEDS: ASCORBIC ACID 1,000 MG TAB PO SCH (10:00)
[2020-11-02] MEDS: ACETAMINOPHEN 500 MG TAB PO PRN (10:00)
[2020-11-02] MEDS: CHOLECALCIFEROL (VITD3) 2,000 UNIT CAP PO SCH (10:00)
[2020-11-02] MEDS: POTASSIUM CHL 10 Meq TABLET PO SCH (10:00)
[2020-11-02] MEDS: ENOXAPARIN SOD 80 MG/0.8ML SYRINGE SC SCH ×2 (10:01→21:25)
[2020-11-02] MEDS: FUROSEMIDE 20 MG/2 ML VIAL IV SCH (10:02)
--- NOTE | 2020-11-02 10:50 | NUR ---
Dr. Maria informed that pt is currently at 9 lit of O2 via Oxymizer, O2 sat at 95%, pt reports pain to rt buttocks, and that Tylenol has been given,
[2020-11-02] MEDS: ZINC SULFATE 220mg CAP or TAB PO SCH (12:41)
[2020-11-02 12:53] VITALS: BP 102/65
[2020-11-02] MEDS: HYDROcodone-ACET 5/325MG TAB PO PRN ×2 (13:32→22:09)
[2020-11-02 16:59] VITALS: BP 100/58
[2020-11-02 21:33] VITALS: BP 105/64
[2020-11-03] MEDS: ACETAMINOPHEN 500 MG TAB PO PRN (03:04)
--- NOTE | 2020-11-03 03:15 | NUR ---
assist pt to bathroom waitung outside to pt finish Addendum: 11/03/20 at 0406 by MARIO WHITNEY RN disregard this note
--- NOTE | 2020-11-03 03:31 | NUR ---
SYNCOPAL EPISODE Assisted pt to the bathroom, waited outside for pt to finish for 2-3 minutes, call out and asked if pt was done, no response, walked in and pt was unresponsive sitting on toilet. Noted pt without her oxymizer in place. Placed oxymizer back on pt, after 1 min pt became responsive . RT and other RNS assisted pt to wheel chair and back to bed. [facility] AIR BRAKE TESTER came to bed side and no new orders were given. Placed pt on 15L non rebreather. Patient's vital signs b/p-117,hr-74,rr-20,o2 sat-91% temp-98.8 and blood sugar 165. Pt is alert and oriented, bed alarm on, will continue to monitor. Addendum: 11/03/20 at 0516 by MARIO WHITNEY RN b/p-117/65
[2020-11-03 05:19] VITALS: BP 105/64
[2020-11-03] MEDS: InsuLIN REG 1unit/0.01ml Soln (100units/ml) SC SCH ×4 (05:45→21:11)
[2020-11-03] MEDS: ACCU-CHEK COMFORT CURVE STRIP VI SCH ×4 (05:46→21:12)
[2020-11-03] MEDS: PIPERACILLIN-TAZOB 3.375GM 100 ML IV SCH ×4 (05:46→23:41)
[2020-11-03] MEDS: HYDROcodone-ACET 5/325MG TAB PO PRN ×3 (05:47→21:23)
--- NOTE | 2020-11-03 06:09 | NUR ---
ANOTHER SYNCOPAL EPISODE Assisted pt to the bedside commode with 15L non rebreather , while on the bedside commode pt became unresponsive for 2 minutes then became responsive again. RT and other RNS assisted pt back to bed .recheck pt vital signs- b/p-87/59,map 74 ,h/r-88,rr-20,o2 91%.will continue to monitor.
--- NOTE | 2020-11-03 06:38 | NUR ---
reassess b/p-92/61 and heart rate-76
--- NOTE | 2020-11-03 07:07 | NUR ---
END OF SHIFT NOTES WILL ENDORSE CARE TO DAY SHIFT RN ,NO S/S OF DISTRESS OR SOB
[2020-11-03 08:00] VITALS: BP 116/60
--- NOTE | 2020-11-03 08:00 | NUR ---
ASSESSMENT NOTE PT IS ALERT ORIENTED X4, UKRAINIAN SPEAKING, IS ABLE TO SPEAK WITH A FEW WORDS IN TRINIDADIAN IN ORDER TO IDENTIFY HER NEEDS, NURSE AIDE AT BED SIDE TRANSLATE FOR ME, PT APPEAR VERY WEAK, BUT ABLE TO VERBALIS HER DEMANDS VERY STRONGLY, COMPLAINING FROM HEADACHE AND A DULL PAIN ON HER RIGHT LEG, LARGE SOLID BRUISES NOTED AT LEFT LOWER ABDOMEN AREA DUE TO LOVENOX SHOTS SQ, PT IS VERY WEAK TO GET REPOSITION, ASSISTED ON TURNING AT ALL TIMES, BED MARIN NEEDED, FALL RISK PRECAUTIONS, CALL LIGHT WITHIN REACH
[2020-11-03 08:59] VITALS: BP 109/67
[2020-11-03] MEDS: FAMOTIDINE (10MG/ML) 2ML VL IV SCH ×2 (09:14→21:12)
[2020-11-03] MEDS: DexAMETHasone SOD PHOS 10MG/1ML VIAL INJ IV SCH (09:14)
[2020-11-03] MEDS: ZINC SULFATE 220mg CAP or TAB PO SCH (09:15)
[2020-11-03] MEDS: DOCUSATE SOD 100 MG CAP PO SCH ×2 (09:15→21:12)
[2020-11-03] MEDS: POTASSIUM CHL 10 Meq TABLET PO SCH (09:16)
[2020-11-03] MEDS: CHOLECALCIFEROL (VITD3) 2,000 UNIT CAP PO SCH (09:16)
[2020-11-03] MEDS: ENOXAPARIN SOD 80 MG/0.8ML SYRINGE SC SCH ×2 (09:16→21:12)
[2020-11-03] MEDS: ASCORBIC ACID 1,000 MG TAB PO SCH (09:16)
[2020-11-03] MEDS: BUDESONIDE (INHALATION) 180 MCG IH IN SCH ×2 (10:00→19:54)
[2020-11-03] MEDS: MORPHINE SULF INJ 2 MG/ML SYRINGE 1ML IV PRN ×2 (10:13→23:06)
--- NOTE | 2020-11-03 10:13 | NUR ---
PAIN PT HAS ACHING MUSCLE PAIN AT RT UPPER THIGH, MORPHINE IV SLOWLY GIVEN TO PT, CONTINUE MONITORING
--- NOTE | 2020-11-03 11:20 | NUR ---
DR TRINIDAD AT BED SIDE FOLLOWING UP ON PT WITH NEW ORDERS
[2020-11-03 13:00] VITALS: BP 104/77
[2020-11-03] MEDS ORDERED: POTASSIUM CHL 20 Meq TABLET PO ONE (13:00)
--- NOTE | 2020-11-03 15:22 | NUR ---
Nutrition Followup Notes Wt 77.2 kg Pt is in COVID isolation, s/p supplemental O2. Pt is currently on a CCHO 60g diet with adequate PO of ave 75% x 3 per RN doc. Est energy needs 3678-6819 kcal (20-23 kcal/kg BW 81.6kg) Est protein needs 59-77g (1-1.3g/kg IBW 59kg) Will monitor and reassess prn. Labs: GLUC 161 H, A1c 6.3 H, ALB 2.4 L BM: Pt had no BM today per RN note Skin: BS 20 low risk, full details in director of managed care note PES: Overweight aeb pt with a BMI of 28.2kg/m2 r/t caloric intake in excess of needs Comments: Will continue to monitor PO intake, skin status, pertinent labs and weight trends. Will f/u in 3-5 days 1) Refer to OPD dietitian on DC. 2) Continue current plan of care
--- NOTE | 2020-11-03 15:30 | NUR ---
Zambrano catheter insertion Patient assessed and determined to be in need of zambrano catheter. Order obtained from MD. Patient educated on catheter and reason for insertion. All questions answered. Zambrano catheter guage Kiswahili inserted with clean sterile technique. Patient tolerated well.
--- NOTE | 2020-11-03 15:49 | NUR ---
OUT TO RADIOLOGY VIA A GURNEY, WITH NON REBREATHER MASK 15 L, ALERT ORIENTED X4, NO DISTRESS NOTED, JAILYN AND MIRIAN FROM THE RADIOLOGY DEPARTMENT AT HER SIDE, PT IS CALM AND COOPERATIVE.
--- NOTE | 2020-11-03 16:15 | NUR ---
PT IS BACK TO HER ROOM, NO DISTRESS NOTED, CONTINUE MONITORING
[2020-11-03] MEDS: ALBUTEROL SULF HFA 90MCG INH 200DOSE IN PRN ×2 (16:40→19:54)
[2020-11-03] MEDS ORDERED: LACTULOSE 20Gm/30ML SOLN PO ONE (16:45)
[2020-11-03 16:59] VITALS: BP 111/65
[2020-11-03] MEDS: FUROSEMIDE 20 MG/2 ML VIAL IV SCH (17:32)
--- NOTE | 2020-11-03 18:52 | NUR ---
PT CONTINUE STABLE, NO DISTRESS NOTED, CONTINUE HAVING A DULL ACHING PAIN AT RT UPPER THIGH, ON PAIN MANAGEMENT NEEDED
[2020-11-03 22:59] VITALS: BP 109/74
[2020-11-04 05:00] VITALS: BP 119/70
[2020-11-04] MEDS: MORPHINE SULF INJ 2 MG/ML SYRINGE 1ML IV PRN ×2 (05:25→21:30)
[2020-11-04] MEDS: ACCU-CHEK COMFORT CURVE STRIP VI SCH ×4 (05:27→21:43)
[2020-11-04] MEDS: PIPERACILLIN-TAZOB 3.375GM 100 ML IV SCH ×3 (05:27→17:26)
[2020-11-04] MEDS: InsuLIN REG 1unit/0.01ml Soln (100units/ml) SC SCH ×4 (05:27→21:29)
--- NOTE | 2020-11-04 06:42 | NUR ---
END OF SHIFT NOTES WILL ENDORSE CARE TO DAY SHIFT RN ,NO S/S OF DISTRESS OR SOB
[2020-11-04] MEDS: ONDANSETRON HCL 4 MG/2 ML VIAL IV PRN (06:54)
[2020-11-04 07:41] LABS: Basophils # (auto) 0.2 10 ^3/uL (0-0.2); Basophils % (auto) 0.7 % (0.0-2.0); Eosinophils # (auto) 0 10 ^3/uL (0-0.8); Hematocrit 34.3 % (36.0-46.0); Hemoglobin 10.9 g/dL (12.2-16.2); Lymphocytes # (auto) 3.4 10 ^3/uL (0.4-5.4); Lymphocytes % (auto) 14.9 % (10.0-50.0); Mean Corpuscular Hemoglobin 27.2 pg (28.0-32.0); Mean Corpuscular Hgb Conc. 31.8 g/dL (32.0-36.0); Mean Corpuscular Volume 85.4 fL (80.0-100.0); Monocytes # (auto) 1.2 10 ^3/uL (0-1.3); Monocytes % (auto) 5.4 % (0.0-12.0); Neutrophils # (auto) 17.8 10 ^3/uL (1.6-8.6); Nucleated Red Blood Cells % 0.1 %; Platelet Count (auto) 330 10^3/uL (140-450); Red Blood Cells 4.02 10^6/uL (4.0-5.20); White Blood Cell 22.5 10^3/uL (4.4-10.8)
[2020-11-04 07:58] LABS: Potassium 3.5 mmol/L (3.5-5.1)
[2020-11-04 08:00] VITALS: BP 116/60
[2020-11-04 08:08] LABS: Albumin 2.9 g/dL (3.4-5.0); BUN/Creatinine Ratio 29.5; Calcium 9.5 mg/dL (8.5-10.1); Magnesium 2.9 mg/dL (1.6-2.6); Total Protein 6.4 g/dL (6.4-8.2)
[2020-11-04 09:00] VITALS: BP 106/67
[2020-11-04] MEDS: DexAMETHasone SOD PHOS 10MG/1ML VIAL INJ IV SCH (09:53)
[2020-11-04] MEDS: FAMOTIDINE (10MG/ML) 2ML VL IV SCH ×2 (09:54→21:44)
[2020-11-04] MEDS: FUROSEMIDE 20 MG/2 ML VIAL IV SCH (09:54)
[2020-11-04] MEDS: DOCUSATE SOD 100 MG CAP PO SCH ×2 (09:55→21:43)
[2020-11-04] MEDS: ZINC SULFATE 220mg CAP or TAB PO SCH (09:55)
[2020-11-04] MEDS: POTASSIUM CHL 10 Meq TABLET PO SCH (09:55)
[2020-11-04] MEDS: ASCORBIC ACID 1,000 MG TAB PO SCH (09:55)
[2020-11-04] MEDS: CHOLECALCIFEROL (VITD3) 2,000 UNIT CAP PO SCH (09:56)
[2020-11-04] MEDS: ENOXAPARIN SOD 80 MG/0.8ML SYRINGE SC SCH (09:57)
[2020-11-04] MEDS: BUDESONIDE (INHALATION) 180 MCG IH IN SCH ×2 (10:00→20:33)
[2020-11-04 13:00] VITALS: BP 104/68
--- NOTE | 2020-11-04 15:35 | NUR ---
IV DISCONTINUED, CATHETER INTACT. PATIENT PRESCRIPTION FAXED TO PHARMACY TO BE FILLED. Addendum: 11/04/20 at 1536 by Tameka Serrato RN WRONG PATIENT
[2020-11-04 17:00] VITALS: BP 114/67
[2020-11-04] MEDS: HYDROcodone-ACET 5/325MG TAB PO PRN (17:35)
[2020-11-04] MEDS: ALBUTEROL SULF HFA 90MCG INH 200DOSE IN PRN (20:34)
[2020-11-04] MEDS: APIXABAN 5 MG TAB PO SCH (21:43)
[2020-11-04 22:00] VITALS: BP 108/68
[2020-11-05] VITALS (10 sets, daily range): BP systolic 107–123; BP diastolic 42–72
[2020-11-05] MEDS: PIPERACILLIN-TAZOB 3.375GM 100 ML IV SCH ×4 (00:42→18:24)
[2020-11-05] MEDS: HYDROcodone-ACET 5/325MG TAB PO PRN ×2 (00:50→08:51)
[2020-11-05] MEDS: InsuLIN REG 1unit/0.01ml Soln (100units/ml) SC SCH ×4 (05:50→22:00)
[2020-11-05] MEDS: ACCU-CHEK COMFORT CURVE STRIP VI SCH ×4 (05:51→22:00)
--- NOTE | 2020-11-05 06:46 | NUR ---
END OF SHIFT NOTES WILL ENDORSE CARE TO DAY SHIFT RN ,NO S/S OF DISTRESS OR SOB
[2020-11-05] MEDS: ALBUTEROL SULF HFA 90MCG INH 200DOSE IN PRN ×2 (07:04→22:19)
[2020-11-05] MEDS: BUDESONIDE (INHALATION) 180 MCG IH IN SCH ×2 (07:04→22:19)
--- NOTE | 2020-11-05 07:30 | NUR ---
Opening Shift Notes Assumed patient care from NOC RN. Patient currently resting in bed, eyes closed. Respirations even and unlabored on 15L nonrebreather mask. Patient on continuous pulse ox monitoring. Sitter is at bedside. Safety precautions in place. Will continue to monitor q1hr and PRN.
[2020-11-05 08:15] LABS: Basophils # (auto) 0 10 ^3/uL (0-0.2); Basophils % (auto) 0.2 % (0.0-2.0); Eosinophils # (auto) 0 10 ^3/uL (0-0.8); Hematocrit 27.4 % (36.0-46.0); Hemoglobin 9.1 g/dL (12.2-16.2); Lymphocytes % (auto) 11.9 % (10.0-50.0); Mean Corpuscular Hemoglobin 28.2 pg (28.0-32.0); Mean Corpuscular Hgb Conc. 33.1 g/dL (32.0-36.0); Mean Corpuscular Volume 85.1 fL (80.0-100.0); Neutrophils # (auto) 20.8 10 ^3/uL (1.6-8.6); Neutrophils % (auto) 83.9 % (37.0-80.0); Nucleated Red Blood Cells % 0.5 %; Platelet Count (auto) 246 10^3/uL (140-450); Red Blood Cells 3.22 10^6/uL (4.0-5.20); Red Cell Distribution Width 14.3 % (11.8-14.3); White Blood Cell 24.8 10^3/uL (4.4-10.8)
[2020-11-05] MEDS: FUROSEMIDE 20 MG/2 ML VIAL IV SCH (08:47)
[2020-11-05] MEDS: DexAMETHasone SOD PHOS 10MG/1ML VIAL INJ IV SCH (08:47)
[2020-11-05] MEDS: FAMOTIDINE (10MG/ML) 2ML VL IV SCH ×2 (08:48→21:17)
[2020-11-05] MEDS: ZINC SULFATE 220mg CAP or TAB PO SCH (08:49)
[2020-11-05] MEDS: DOCUSATE SOD 100 MG CAP PO SCH ×2 (08:49→21:16)
[2020-11-05] MEDS: POTASSIUM CHL 10 Meq TABLET PO SCH (08:50)
[2020-11-05] MEDS: APIXABAN 5 MG TAB PO SCH ×2 (08:50→21:17)
[2020-11-05] MEDS: ASCORBIC ACID 1,000 MG TAB PO SCH (08:51)
[2020-11-05] MEDS: CHOLECALCIFEROL (VITD3) 2,000 UNIT CAP PO SCH (08:51)
[2020-11-05 09:07] LABS: Calcium 9.4 mg/dL (8.5-10.1); Magnesium 2.9 mg/dL (1.6-2.6); Potassium 3.2 mmol/L (3.5-5.1)
[2020-11-05 09:09] LABS: BUN/Creatinine Ratio 39.4
--- NOTE | 2020-11-05 12:00 | NUR ---
at Bedside Dr. Maria at bedside discussing plan of care at this time.
--- NOTE | 2020-11-05 12:30 | NUR ---
Patient Rounds Attempted to prone. Patient currently refusing proning and side laying position. Patient educated on risks and benefits, patient verbalized understanding but continues to refuse.
--- NOTE | 2020-11-05 14:00 | NUR ---
Family Spoke with patient's family member, Lauren, regarding plan of care. Password confirmed. All questions answered at this time, call transferred to room per family member request.
--- NOTE | 2020-11-05 19:15 | NUR ---
Opening Shift Note Assumed care of patient, patient awake and alert and oriented x4. No S/S of distress/ pain. patient is on 02 15 liters non rebreather. Instructed on POC and to call for assist PRN, safety measures in place call light with in reach bed in lowest position side rails up x2. will continue to monitor for changes Q1hr and PRN.
[2020-11-05] MEDS: MORPHINE SULF INJ 2 MG/ML SYRINGE 1ML IV PRN (21:17)
[2020-11-06] MEDS: PIPERACILLIN-TAZOB 3.375GM 100 ML IV SCH ×3 (00:10→11:38)
[2020-11-06 05:19] VITALS: BP 116/72
[2020-11-06] MEDS: ACCU-CHEK COMFORT CURVE STRIP VI SCH ×4 (06:24→22:16)
[2020-11-06] MEDS: InsuLIN REG 1unit/0.01ml Soln (100units/ml) SC SCH ×4 (06:25→22:29)
[2020-11-06] MEDS: BUDESONIDE (INHALATION) 180 MCG IH IN SCH ×2 (07:37→21:42)
[2020-11-06] MEDS: ALBUTEROL SULF HFA 90MCG INH 200DOSE IN PRN (07:37)
[2020-11-06 08:00] VITALS: BP 113/63
--- NOTE | 2020-11-06 08:00 | NUR ---
ASSESSMENT NOTE PT IS ALERT ORIENTED X4, RESTING IN BED COMFORTABLY, NO DISTRESS NOTED, ABLE TO SELF REPOSITION AND VERBALIS HER DEMANDS, PT SPEAK CHADIAN AND ALBANIAN, OXYGEN NON REBREATHER MASK 10 L SAT AT 93 %, NO DISTRESS NOTED, PAIN 0/10,PT CONTINUE TO HAVE LARGE BRUISE AREA AT LEFT LOWER ABDOMEN, AND SOME BRUISES AT RT LATERAL THIGH, TENDER TO TOUCH, CALL LIGHT WITHIN REACH
--- NOTE | 2020-11-06 08:30 | NUR ---
ATTEMPT TO SWITCH TO OXYMIZER PT REFUSED
[2020-11-06 09:00] VITALS: BP 107/62
[2020-11-06] MEDS: DexAMETHasone SOD PHOS 10MG/1ML VIAL INJ IV SCH (09:54)
[2020-11-06] MEDS: FAMOTIDINE (10MG/ML) 2ML VL IV SCH ×2 (09:55→22:15)
[2020-11-06] MEDS: FUROSEMIDE 20 MG/2 ML VIAL IV SCH (09:55)
[2020-11-06] MEDS: ZINC SULFATE 220mg CAP or TAB PO SCH (09:55)
[2020-11-06] MEDS: APIXABAN 5 MG TAB PO SCH ×2 (09:56→22:16)
[2020-11-06] MEDS: CHOLECALCIFEROL (VITD3) 2,000 UNIT CAP PO SCH (09:56)
[2020-11-06] MEDS: POTASSIUM CHL 10 Meq TABLET PO SCH (09:56)
[2020-11-06] MEDS: DOCUSATE SOD 100 MG CAP PO SCH ×2 (09:56→22:00)
[2020-11-06] MEDS: ASCORBIC ACID 1,000 MG TAB PO SCH (09:56)
--- NOTE | 2020-11-06 10:30 | NUR ---
BM PT HAS A BM ON A BED MARIN, KEPT DRY AND CLEAN
--- NOTE | 2020-11-06 11:36 | NUR ---
DR TANNER AT BED SIDE FOLLOWING UP ON PT, DECREASE THE OXYGEN FROM 15 TO 12 L, CONTINUE MONITORING
--- NOTE | 2020-11-06 12:08 | NUR ---
Nutrition Followup Notes Wt 75.0 kg Pt is in COVID isolation. Pt is currently on a CCHO 60g diet with inadequate PO of ave 20% x 2 meals per RN doc. Est energy needs 6451-9233 kcal (20-23 kcal/kg BW 81.6kg) Est protein needs 59-77g (1-1.3g/kg IBW 59kg) Will monitor and reassess prn. Labs: GLUC 153 H, A1c 6.3 H, ALB 2.9 L BM: Pt had no BM today per RN note Skin: BS 18 mod risk, full details in before and after school daycare worker note PES: Overweight aeb pt with a BMI of 28.2kg/m2 r/t caloric intake in excess of needs Comments: Will continue to monitor PO intake, skin status, pertinent labs and weight trends. Will f/u in 3-5 days 1) Refer to OPD dietitian on DC. 2) Continue current plan of care
--- NOTE | 2020-11-06 12:20 | NUR ---
ANXIETY PT IS BEEN EXPRESSING ANGER AND STRESS OUT DUE TO LONG HOSPITALIZATION, PAGE DR TANNER CALLED BACK WITH JIL CASTELLANOS
--- NOTE | 2020-11-06 12:24 | NUR ---
FAMILY MARIAH, PATIENT'S DAUGHTER CALLED, STATED MY MOM SAID THAT SHE IS STRESSED OUT, MADE AWARE THAT I AM IN TH EPROCESS TO GET ATIVAN ORDERS
[2020-11-06] MEDS ORDERED: LORazepam 0.5 MG TAB PO PRN (12:30)
[2020-11-06 13:00] VITALS: BP 106/54
[2020-11-06] MEDS ORDERED: MEROPENEM 500MG IVPB 50 ML IV ONE (13:30)
[2020-11-06] MEDS ORDERED: MEROPENEM 1GM IVPB 100 ML IV SCH (14:00)
--- NOTE | 2020-11-06 14:30 | NUR ---
PATIENT START TO SHOW SIGNS OF CONFUSION, FROM THE EFFECT OF THE ATIVAN, TRY TO GET OUT OF BED, BED ALARM ACTIVATED, MONITOR PT AT ALL TIMES, TOLERATING 12 L WELL
[2020-11-06] MEDS: MEROPENEM 1GM IVPB 100 ML IV SCH ×2 (14:46→22:15)
[2020-11-06] MEDS: HYDROcodone-ACET 5/325MG TAB PO PRN (16:37)
[2020-11-06 17:00] VITALS: BP 110/62
--- NOTE | 2020-11-06 18:38 | NUR ---
PT IS SLEEPING, NO DISTRESS NOTED, CONTINUE MONITORING
[2020-11-06 20:00] VITALS: BP 106/57
[2020-11-06] MEDS ORDERED: LINEZOLID 600MG/300ML 300 ML IV SCH (22:00)
[2020-11-06] MEDS: LINEZOLID 600MG TABLET PO SCH (22:00)
--- NOTE | 2020-11-06 22:30 | NUR ---
Zyvox Linezolid is not available at this time. Called pharmacy, got advise to spoke to fartun sup. Paged house sup. Spoke to charge nurse. She is aware we are out of this med.
[2020-11-07] VITALS (7 sets, daily range): BP systolic 107–130; BP diastolic 52–62
[2020-11-07] MEDS: ALBUTEROL SULF HFA 90MCG INH 200DOSE IN PRN ×3 (00:03→19:52)
[2020-11-07] MEDS: MEROPENEM 1GM IVPB 100 ML IV SCH ×3 (06:09→22:09)
[2020-11-07] MEDS: ACCU-CHEK COMFORT CURVE STRIP VI SCH ×4 (06:34→22:10)
[2020-11-07] MEDS: InsuLIN REG 1unit/0.01ml Soln (100units/ml) SC SCH ×4 (06:37→22:18)
[2020-11-07] MEDS: BUDESONIDE (INHALATION) 180 MCG IH IN SCH ×2 (07:55→22:19)
--- NOTE | 2020-11-07 08:00 | NUR ---
ASSESSMENT NOTE PT IS ALERT ORIENTED X4, RESTING IN BED COMFORTABLY, NO DISTRESS NOTED, ABLE TO SELF REPOSITION AND VERBALIS HER DEMANDS, PT SPEAK EMIRATI AND YI, OXYGEN OXYMIZER MASK 10 L SAT AT 94 %, NO DISTRESS NOTED, PAIN 0/10,PT CONTINUE TO HAVE LARGE BRUISE AREA AT LEFT LOWER ABDOMEN, AND SOME BRUISES AT RT LATERAL THIGH, TENDER TO TOUCH, CALL LIGHT WITHIN REACH
[2020-11-07] MEDS: FAMOTIDINE (10MG/ML) 2ML VL IV SCH ×2 (09:25→22:09)
[2020-11-07] MEDS: DexAMETHasone SOD PHOS 10MG/1ML VIAL INJ IV SCH (09:25)
[2020-11-07] MEDS: ASCORBIC ACID 1,000 MG TAB PO SCH (09:26)
[2020-11-07] MEDS: ZINC SULFATE 220mg CAP or TAB PO SCH (09:26)
[2020-11-07] MEDS: POTASSIUM CHL 10 Meq TABLET PO SCH (09:26)
[2020-11-07] MEDS: APIXABAN 5 MG TAB PO SCH ×2 (09:26→22:10)
[2020-11-07] MEDS: DOCUSATE SOD 100 MG CAP PO SCH ×2 (09:26→22:00)
[2020-11-07] MEDS: CHOLECALCIFEROL (VITD3) 2,000 UNIT CAP PO SCH (09:27)
[2020-11-07] MEDS: FUROSEMIDE 20 MG/2 ML VIAL IV SCH (09:27)
[2020-11-07] MEDS: LINEZOLID 600MG TABLET PO SCH ×2 (10:08→22:10)
--- NOTE | 2020-11-07 11:10 | NUR ---
DR TANNER AT BED SIDE, MADE AWARE OF PATIENT'S UPDATE DECREASE THE OXYMIZER TO 8L, CONTINUE MONITORING
--- NOTE | 2020-11-07 11:30 | NUR ---
PT ON 8L OXYMIZER SAT AT 96%
--- NOTE | 2020-11-07 16:00 | NUR ---
DECREASE OXYGEN OXYMIZER TO 4 L PT SAT AT 94% CONTINUE MONITORING PT
[2020-11-07 16:46] LABS: Basophils # (auto) 0 10 ^3/uL (0-0.2); Basophils % (auto) 0.1 % (0.0-2.0); Eosinophils # (auto) 0 10 ^3/uL (0-0.8); Hemoglobin 7.2 g/dL (12.2-16.2); Monocytes # (auto) 0.5 10 ^3/uL (0-1.3); Nucleated Red Blood Cells % 0.2 %; Platelet Count (auto) 184 10^3/uL (140-450); White Blood Cell 16.2 10^3/uL (4.4-10.8)
[2020-11-07 16:48] LABS: Eosinophils % (auto) 0.1 % (0.0-7.0); Hematocrit 20.9 % (36.0-46.0); Lymphocytes # (auto) 1.8 10 ^3/uL (0.4-5.4); Lymphocytes % (auto) 10.9 % (10.0-50.0); Mean Corpuscular Hemoglobin 29.9 pg (28.0-32.0); Mean Corpuscular Hgb Conc. 34.3 g/dL (32.0-36.0); Mean Corpuscular Volume 87.4 fL (80.0-100.0); Neutrophils # (auto) 13.9 10 ^3/uL (1.6-8.6); Neutrophils % (auto) 85.9 % (37.0-80.0); Red Cell Distribution Width 14.6 % (11.8-14.3)
[2020-11-07 17:11] LABS: Calcium 9.1 mg/dL (8.5-10.1); Potassium 3.5 mmol/L (3.5-5.1)
[2020-11-07 17:12] LABS: BUN/Creatinine Ratio 43.6
[2020-11-07] MEDS: MORPHINE SULF INJ 2 MG/ML SYRINGE 1ML IV PRN (21:08)
[2020-11-08 05:00] VITALS: BP 116/57
[2020-11-08] MEDS: MEROPENEM 1GM IVPB 100 ML IV SCH ×3 (05:47→22:25)
[2020-11-08 06:18] LABS: Basophils # (auto) 0 10 ^3/uL (0-0.2); Basophils % (auto) 0.1 % (0.0-2.0); Eosinophils # (auto) 0 10 ^3/uL (0-0.8); Hemoglobin 7.2 g/dL (12.2-16.2); Monocytes # (auto) 0.7 10 ^3/uL (0-1.3); Neutrophils # (auto) 13.5 10 ^3/uL (1.6-8.6); Neutrophils % (auto) 80.3 % (37.0-80.0)
[2020-11-08 06:20] LABS: Lymphocytes # (auto) 2.5 10 ^3/uL (0.4-5.4); Lymphocytes % (auto) 15.2 % (10.0-50.0); Mean Corpuscular Hemoglobin 30.3 pg (28.0-32.0); Mean Corpuscular Hgb Conc. 34.4 g/dL (32.0-36.0); Monocytes % (auto) 4.4 % (0.0-12.0); Nucleated Red Blood Cells % 0.5 %; Platelet Count (auto) 190 10^3/uL (140-450); Red Blood Cells 2.38 10^6/uL (4.0-5.20); White Blood Cell 16.7 10^3/uL (4.4-10.8)
[2020-11-08 06:29] LABS: Potassium 3.3 mmol/L (3.5-5.1)
[2020-11-08 06:32] LABS: BUN/Creatinine Ratio 41.5
[2020-11-08] MEDS: ACCU-CHEK COMFORT CURVE STRIP VI SCH ×3 (06:48→17:19)
[2020-11-08] MEDS: InsuLIN REG 1unit/0.01ml Soln (100units/ml) SC SCH ×3 (06:48→18:33)
[2020-11-08] MEDS: BUDESONIDE (INHALATION) 180 MCG IH IN SCH ×3 (07:17→22:26)
[2020-11-08] MEDS: ALBUTEROL SULF HFA 90MCG INH 200DOSE IN PRN (07:17)
--- NOTE | 2020-11-08 08:00 | NUR ---
Morning note Patient resting in bed with even and unlabored respirations on 4LPM Oxymizer, no distress noted. Instructed patient through translation on POC, fall precautions, pressure injury prevention, and to call for assistance as needed. Patient verbalized understanding. Fall precautions in place with call light within reach.
[2020-11-08] MEDS: ASCORBIC ACID 1,000 MG TAB PO SCH (11:10)
[2020-11-08] MEDS: APIXABAN 5 MG TAB PO SCH ×2 (11:10→22:25)
[2020-11-08] MEDS: DexAMETHasone SOD PHOS 10MG/1ML VIAL INJ IV SCH (11:10)
[2020-11-08] MEDS: FAMOTIDINE (10MG/ML) 2ML VL IV SCH ×2 (11:10→22:25)
[2020-11-08] MEDS: DOCUSATE SOD 100 MG CAP PO SCH ×2 (11:10→22:25)
[2020-11-08] MEDS: ZINC SULFATE 220mg CAP or TAB PO SCH (11:10)
[2020-11-08] MEDS: LINEZOLID 600MG TABLET PO SCH ×2 (11:10→22:26)
[2020-11-08] MEDS: CHOLECALCIFEROL (VITD3) 2,000 UNIT CAP PO SCH (11:10)
[2020-11-08] MEDS: FUROSEMIDE 20 MG/2 ML VIAL IV SCH (11:10)
[2020-11-08] MEDS: POTASSIUM CHL 10 Meq TABLET PO SCH (11:10)
--- NOTE | 2020-11-08 11:50 | NUR ---
MD was at bedside/Order received Dr. Maria was at bedside. Notified MD of current Hgb and potassium level. MD verbalized understanding. Order received and read back to verify. RE: order - meditech not available. Order to be placed once meditech available.
--- NOTE | 2020-11-08 15:34 | NUR ---
Increased oxygen support to 10LPM Oxymizer Pulse ox 87% on 4LPM Oxymizer. Increased to 10LPM. Pulse ox 93%. Respirations even and unlabored.
--- NOTE | 2020-11-08 16:30 | NUR ---
Patient transferred to room 276B via hospital bed Patient on 10LPM Oxymizer. Respirations even and unlabored, no distress noted. Patient transferred with all personal belongings.
--- NOTE | 2020-11-08 16:47 | NUR ---
RE: Activity Encouraging patient to cough, deep breathe and turn. Patient stated "Not now. No." Education provided. Patient verbalized understanding and stated "I don't feel like it. I'm tired."
[2020-11-08] MEDS ORDERED: POTASSIUM CHL 20 Meq TABLET PO ONE (17:00)
--- NOTE | 2020-11-08 17:32 | NUR ---
Updated next of kin of transfer to new room Spoke to Venus, patient's [id number]. Venus verbalized understanding.
--- NOTE | 2020-11-08 18:40 | NUR ---
Closing note Patient resting in bed with even and unlabored respirations on 10LPM oxymizer, no distress noted. Fall precautions in place with call light within reach.
--- NOTE | 2020-11-08 19:22 | NUR ---
Care endorsed to DEV Peck.
--- NOTE | 2020-11-08 20:54 | NUR ---
Respiratory note: MEDS NOT TAKEN WITH PATIENT DURING TRANSPORT. SEARCHED THROUGH BELONGINGS BUT NOTHING FOUND. PT IS NOT IN DISTRESS. WILL CONTINUE TO MONITOR
[2020-11-08 22:00] VITALS: BP 133/63
--- NOTE | 2020-11-08 22:00 | NUR ---
Patient is restless and confused. [place] speaking staff at the bedside talking to the patient. Patient is c/o pain to her R hip. Unable to state pain level but patient is moaning.
--- NOTE | 2020-11-08 22:25 | NUR ---
[place] speaking RN at the bedside explaining to the patient re: pain medication to be given but patient refused. Patient refused to be turn at this time. Will continue to monitor.
[2020-11-09] MEDS: InsuLIN REG 1unit/0.01ml Soln (100units/ml) SC SCH ×5 (01:20→22:27)
[2020-11-09] MEDS: ACCU-CHEK COMFORT CURVE STRIP VI SCH ×5 (01:20→21:54)
[2020-11-09] MEDS: MEROPENEM 1GM IVPB 100 ML IV SCH ×3 (05:46→21:53)
[2020-11-09 05:53] VITALS: BP 114/4
[2020-11-09] MEDS: BUDESONIDE (INHALATION) 180 MCG IH IN SCH ×2 (06:46→20:46)
[2020-11-09] MEDS: ALBUTEROL SULF HFA 90MCG INH 200DOSE IN PRN ×2 (06:46→20:46)
[2020-11-09 07:10] LABS: Basophils # (auto) 0 10 ^3/uL (0-0.2); Basophils % (auto) 0.1 % (0.0-2.0); Eosinophils # (auto) 0 10 ^3/uL (0-0.8)
[2020-11-09 07:13] LABS: Hematocrit 21.7 % (36.0-46.0); Hemoglobin 7.2 g/dL (12.2-16.2); Lymphocytes # (auto) 1.5 10 ^3/uL (0.4-5.4); Lymphocytes % (auto) 10.3 % (10.0-50.0); Mean Corpuscular Hemoglobin 29.8 pg (28.0-32.0); Mean Corpuscular Volume 90.2 fL (80.0-100.0); Monocytes # (auto) 0.6 10 ^3/uL (0-1.3); Neutrophils # (auto) 12.6 10 ^3/uL (1.6-8.6); Neutrophils % (auto) 85.6 % (37.0-80.0); Nucleated Red Blood Cells % 0.3 %; Platelet Count (auto) 190 10^3/uL (140-450); Red Blood Cells 2.41 10^6/uL (4.0-5.20); Red Cell Distribution Width 15.6 % (11.8-14.3); White Blood Cell 14.8 10^3/uL (4.4-10.8)
[2020-11-09 07:26] LABS: Potassium 3.7 mmol/L (3.5-5.1)
[2020-11-09 07:29] LABS: INR 1.3 (0.9-1.15)
[2020-11-09] MEDS: HYDROcodone-ACET 5/325MG TAB PO PRN (07:29)
[2020-11-09 07:34] LABS: % Iron Saturation 39.3 % (15-50)
[2020-11-09 07:35] LABS: Albumin 2.7 g/dL (3.4-5.0); Magnesium 3.2 mg/dL (1.6-2.6); Total Protein 5.7 g/dL (6.4-8.2)
--- NOTE | 2020-11-09 08:00 | NUR ---
Morning note Patient resting in bed with even and unlabored respirations on 3LPM Oxymizer, no distress noted. Instructed patient through translation on POC, fall precautions, pressure injury prevention, and to call for assistance as needed. Patient verbalized understanding. Fall precautions in place with call light within reach.
--- NOTE | 2020-11-09 10:45 | NUR ---
D/C Planning Regarding social service consult for home oxygen at 3l/min. Advised RN Tovicki this morning patient will need an ABG order before receiving oxygen. Health plan is requesting an ABG order.
[2020-11-09] MEDS: DexAMETHasone SOD PHOS 10MG/1ML VIAL INJ IV SCH (11:01)
[2020-11-09] MEDS: DOCUSATE SOD 100 MG CAP PO SCH ×2 (11:02→21:52)
[2020-11-09] MEDS: APIXABAN 5 MG TAB PO SCH ×2 (11:02→21:52)
[2020-11-09] MEDS: ZINC SULFATE 220mg CAP or TAB PO SCH (11:02)
[2020-11-09] MEDS: FAMOTIDINE (10MG/ML) 2ML VL IV SCH ×2 (11:03→21:53)
[2020-11-09] MEDS: POTASSIUM CHL 10 Meq TABLET PO SCH (11:03)
[2020-11-09] MEDS: FUROSEMIDE 20 MG/2 ML VIAL IV SCH (11:03)
[2020-11-09] MEDS: ASCORBIC ACID 1,000 MG TAB PO SCH (11:03)
[2020-11-09] MEDS: CHOLECALCIFEROL (VITD3) 2,000 UNIT CAP PO SCH (11:04)
[2020-11-09] MEDS: LINEZOLID 600MG TABLET PO SCH ×2 (11:05→21:52)
--- NOTE | 2020-11-09 11:15 | NUR ---
D/C Planning Faxed clinical information information to [facility] and [facility] requesting for portable oxygen to be deliver to front lobby and concentrate oxygen to patient home.
--- NOTE | 2020-11-09 12:15 | NUR ---
Patient refused to sit at side of bed Educated patient on the need to reposition, cough and deep breathe. Patient verbalized understanding. Patient continued to refuse to reposition.
--- NOTE | 2020-11-09 14:27 | NUR ---
D/C planning Received a call from [facility] providing authorization for home oxygen [id number]. Placed a follow up called to Laura Mancuso advising her [facility] approved oxygen. Per Laura Mancuso order was received this morning and they will deliver portable oxygen to front lobby and concentrate oxygen to patient home. ETA delivery 15:30. Informed DEV Lange.
--- NOTE | 2020-11-09 14:54 | NUR ---
Patient had small BM Solid brown BM. Patient used bedpan. Patient able to position self onto bedpan with minimal assistance. Patient cleansed and repositioned for comfort. Call light within reach.
--- NOTE | 2020-11-09 16:00 | NUR ---
Portable home oxygen delivered to bedside.
--- NOTE | 2020-11-09 18:32 | NUR ---
RE: Insulin/held Medication held d/t patient refusing to eat dinner meal.
--- NOTE | 2020-11-09 19:17 | NUR ---
RE: patient refusal with activity This RN has attempted throughout the shift to encourage patient to reposition; sit at the side of the bed; cough and turn; use the Incentative Spirometer at bedside. Patient has refused throughout the shift. Patient stated "I'm tired. Not now." Venus, patient's [id number], as well as Dr. Maria have been updated on patients refusal to participate in POC.
--- NOTE | 2020-11-09 19:18 | NUR ---
Care endorsed/closing note Care endorsed to DEV Dodd. Patient resting in bed with even and unlabored respirations on 5LPM oxymizer, no distress noted. Fall precautions in place with call light within reach.
[2020-11-09] MEDS: DOXYCYCLINE 100 MG TAB/CAP PO SCH (21:53)
[2020-11-09 22:00] VITALS: BP 104/60
[2020-11-10 05:00] VITALS: BP 126/60
[2020-11-10] MEDS: InsuLIN REG 1unit/0.01ml Soln (100units/ml) SC SCH ×4 (05:58→21:10)
[2020-11-10] MEDS: ACCU-CHEK COMFORT CURVE STRIP VI SCH ×4 (05:59→21:11)
[2020-11-10 06:10] LABS: Basophils # (auto) 0 10 ^3/uL (0-0.2); Eosinophils # (auto) 0 10 ^3/uL (0-0.8); Monocytes # (auto) 0.4 10 ^3/uL (0-1.3)
[2020-11-10 06:14] LABS: Basophils % (auto) 0.3 % (0.0-2.0); Eosinophils % (auto) 0.1 % (0.0-7.0); Hematocrit 22.4 % (36.0-46.0); Hemoglobin 7.5 g/dL (12.2-16.2); Lymphocytes # (auto) 1.9 10 ^3/uL (0.4-5.4); Lymphocytes % (auto) 16.9 % (10.0-50.0); Mean Corpuscular Hemoglobin 30.9 pg (28.0-32.0); Mean Corpuscular Hgb Conc. 33.7 g/dL (32.0-36.0); Mean Corpuscular Volume 91.6 fL (80.0-100.0); Monocytes % (auto) 3.3 % (0.0-12.0); Neutrophils % (auto) 79.4 % (37.0-80.0); Nucleated Red Blood Cells % 0.6 %; Platelet Count (auto) 184 10^3/uL (140-450); Red Blood Cells 2.44 10^6/uL (4.0-5.20); Red Cell Distribution Width 16.8 % (11.8-14.3); White Blood Cell 11.3 10^3/uL (4.4-10.8)
[2020-11-10 06:24] LABS: Calcium 8.8 mg/dL (8.5-10.1); Potassium 3.5 mmol/L (3.5-5.1)
[2020-11-10 06:26] LABS: BUN/Creatinine Ratio 47.1
[2020-11-10] MEDS: MEROPENEM 1GM IVPB 100 ML IV SCH ×3 (06:42→21:29)
[2020-11-10 08:22] VITALS: BP 131/80
[2020-11-10] MEDS: ALBUTEROL SULF HFA 90MCG INH 200DOSE IN PRN (08:53)
[2020-11-10] MEDS: BUDESONIDE (INHALATION) 180 MCG IH IN SCH ×2 (08:53→21:47)
[2020-11-10] MEDS: DOXYCYCLINE 100 MG TAB/CAP PO SCH ×2 (09:15→21:27)
[2020-11-10] MEDS: APIXABAN 5 MG TAB PO SCH ×2 (09:16→21:28)
[2020-11-10] MEDS: ASCORBIC ACID 1,000 MG TAB PO SCH (09:17)
[2020-11-10] MEDS: CHOLECALCIFEROL (VITD3) 2,000 UNIT CAP PO SCH (09:17)
[2020-11-10] MEDS: ZINC SULFATE 220mg CAP or TAB PO SCH (09:17)
[2020-11-10] MEDS: POTASSIUM CHL 10 Meq TABLET PO SCH (09:18)
[2020-11-10] MEDS: DOCUSATE SOD 100 MG CAP PO SCH ×2 (09:18→21:28)
[2020-11-10] MEDS: LINEZOLID 600MG TABLET PO SCH ×2 (09:18→21:28)
[2020-11-10] MEDS: FUROSEMIDE 20 MG/2 ML VIAL IV SCH (09:20)
[2020-11-10] MEDS: FAMOTIDINE (10MG/ML) 2ML VL IV SCH ×2 (09:21→21:27)
--- NOTE | 2020-11-10 11:00 | NUR ---
OXYGEN PATIENT COMPLAINING OF SOB, CURRENTLY ON 4L NC SATING 90%, OXYGEN INCREASED TO 5L NC, NOW SATING 94%. WILL CONTINUE TO MONITOR.
--- NOTE | 2020-11-10 11:47 | NUR ---
DOCTOR TRINIDAD AT BEDSIDE. DISCUSSING POC WITH PATIENT. DEV ALEX AT BEDSIDE TO TRANSLATE.
--- NOTE | 2020-11-10 12:06 | NUR ---
Nutrition Followup Notes Wt 79.6 kg Pt is in COVID isolation. Pt is currently on a CCHO 60g diet with inadequate PO of < 50% x 4 per RN doc. Est energy needs 8213-3619 kcal (20-23 kcal/kg BW 81.6kg), Est protein needs 59-77g (1-1.3g/kg IBW 59kg). Will monitor and reassess prn. Labs: GLU 115 H CO2 33 H BUN 32 H BM: Pt had 1 BM today per RN note Skin: BS 17 mod risk, full details in customer care representative note PES: Overweight aeb pt with a BMI of 28.2kg/m2 r/t caloric intake in excess of needs Comments: Will continue to monitor PO intake, skin status, pertinent labs and weight trends. Will f/u in 3-5 days 1) Refer to OPD dietitian on DC. 2) Consider ensure enlive 1 carton bid if PO continues to be low. 3) Continue current plan of care
[2020-11-10 12:30] VITALS: BP 99/71
--- NOTE | 2020-11-10 14:35 | NUR ---
D/C Planning Regarding home oxygen at 5l/min. Faxed updated order to [facility]. Per Bennie with [facility] their portable tanks go up to 5l/min and they will not replace the one they deliver yesterday because patient will be okay with the portable that was deliver on 11/09/20. Informed DEV Solo.
--- NOTE | 2020-11-10 16:00 | NUR ---
OXYGEN PATIENT COMPLAINING OF SOB. CURRENTLY ON 5L NC, SATING 87%. PATIENT PLACED ON OXYMIZER AT 8L, SATING 92%. WILL CONTINUE TO MONITOR.
--- NOTE | 2020-11-10 16:45 | NUR ---
IV INSERTION IV INSERTED USING ASEPTIC TECHNIQUE. 20G TO THE LEFT AC, PATIENT AND FLUSHING.
--- NOTE | 2020-11-10 16:47 | NUR ---
IV REMOVAL IV TO LEFT AC REMOVED, CATHETER TIP INTACT PRESSURE DRESSING APPLIED.
[2020-11-10 17:00] VITALS: BP 115/71
[2020-11-10 22:00] VITALS: BP 112/65
[2020-11-11] MEDS: ALBUTEROL SULF HFA 90MCG INH 200DOSE IN PRN ×2 (00:18→16:00)
[2020-11-11 05:12] VITALS: BP 115/63
[2020-11-11] MEDS: MEROPENEM 1GM IVPB 100 ML IV SCH ×2 (06:08→14:27)
[2020-11-11] MEDS: InsuLIN REG 1unit/0.01ml Soln (100units/ml) SC SCH ×3 (06:09→17:00)
[2020-11-11] MEDS: ACCU-CHEK COMFORT CURVE STRIP VI SCH ×3 (06:09→17:00)
--- NOTE | 2020-11-11 08:57 | NUR ---
OPENING SHIFT NOTE: PATIENT RESTING IN BED, RESPIRATIONS EVEN AND UNLABORED ON 6LOXYMIZER. PATIENT ASSISTED OFF BEDPAN SMALL BROWN SOFT BM NOTED. DAVIES HUNG BELOW BLADDER, HUNG BELOW BLADDER. BED ALARM INTELLIGENCE APPLICATIONS LIGHT WITHIN REACH, WILL CONTINUE TO MONITOR.
[2020-11-11 09:00] VITALS: BP 125/62
[2020-11-11] MEDS: BUDESONIDE (INHALATION) 180 MCG IH IN SCH (10:00)
--- NOTE | 2020-11-11 10:59 | NUR ---
PATIENT CHANGED TO NASAL CANNULA 5L SATURATION 95%. PAGE MADE TO MD TRINIDAD.
[2020-11-11] MEDS: FUROSEMIDE 20 MG/2 ML VIAL IV SCH (11:00)
[2020-11-11] MEDS: ZINC SULFATE 220mg CAP or TAB PO SCH (11:01)
[2020-11-11] MEDS: FAMOTIDINE (10MG/ML) 2ML VL IV SCH (11:01)
[2020-11-11] MEDS: DOCUSATE SOD 100 MG CAP PO SCH (11:02)
[2020-11-11] MEDS: APIXABAN 5 MG TAB PO SCH (11:03)
[2020-11-11] MEDS: POTASSIUM CHL 10 Meq TABLET PO SCH (11:04)
[2020-11-11] MEDS: DOXYCYCLINE 100 MG TAB/CAP PO SCH (11:06)
[2020-11-11] MEDS: ASCORBIC ACID 1,000 MG TAB PO SCH (11:07)
[2020-11-11] MEDS: CHOLECALCIFEROL (VITD3) 2,000 UNIT CAP PO SCH (11:08)
[2020-11-11] MEDS: LINEZOLID 600MG TABLET PO SCH (11:08)
[2020-11-11 13:00] VITALS: BP 146/80
[2020-11-11] MEDS ORDERED: ALBUAER3 IN (13:37)
[2020-11-11] MEDS ORDERED: BUDE2SUS3 IN (13:37)
[2020-11-11] MEDS ORDERED: PANT40TA2 PO (13:37)
[2020-11-11] MEDS ORDERED: ZINC220T6 PO (13:37)
[2020-11-11] MEDS ORDERED: ASCO10003 PO (13:37)
[2020-11-11] MEDS ORDERED: CHOL1CAP47 PO (13:37)
[2020-11-11] MEDS ORDERED: APIX5TAB PO (13:37)
--- NOTE | 2020-11-11 14:04 | NUR ---
Assessment Regarding social service consult for SNF placement. Patient family is refusing SNF placement for patient. Patient is a 75-year-old female who is alert to self. Patient primary language is [place]. Assessment was completed with patient daughter in law Venus . Prior to admission patient reside home with a roommate and functioned independently. Prior to admission patient could care for he own ADLs. Per Venus Patient will be going home with her and she will transport patient home. Advised Venus patient will benefit from home health services and will inform MD. Informed Venus she has the right to participate in all discharge planning. Patient does not have an advance directive. Venus has been provided with information for an advanced directive. Venus verbalized understanding and agrees to discharge plan. Informed MD, Dr. Maria regarding family refusing SNF placement. Per MD she will change order to home health services. Addendum: 11/11/20 at 1409 by BARRY METZ Amended: Links added.
--- NOTE | 2020-11-11 14:09 | NUR ---
D/C Planning Regarding social service consult for home health safety evaluation, physical therapy, medication management, vitals and nurse aide. Faxed clinical information to [facility]. Per Xiomara with [facility] patient has been accepted and service to start within 24-48hrs upon d/c day. Faxed clinical information to [facility] requesting authorization for [facility].
--- NOTE | 2020-11-11 14:09 | NUR ---
DAVIES REMOVED: 10CC REMOVED FORM BALLOON, 650 LIGHT LANDY URINE NOTED IN BAG ON DC, CATHETER INTACT UPON REMOVAL, EDUCATION GIVEN REGARDING FIRST VOID
--- NOTE | 2020-11-11 14:34 | NUR ---
FAMILY UPDATED ON DC PLAN: DAUGHTER KANDACE VERBALIZED UNDERSTANDING INSTRUCTIONS ON INCENTIVE SPIROMETER USE, FREQUENT TURNING/OFFLOADING IF PATIENT IS TO BE IN BED AT HOME, FALL PREVENTION. DAUGHTER CONFIRMED SHE HAS A SHOWER CHAIR AND THE INSTRUCTIONS FOR THE OXYGEN EQUIPMENT. PLAN FOR DISCHARGE TUBE HEATER AT 16:30.
[2020-11-11 14:40] VITALS: BP 115/63
--- NOTE | 2020-11-11 15:49 | NUR ---
Obtain authorization from [facility] for [facility] [id number].
--- NOTE | 2020-11-11 16:53 | NUR ---
DISCHARGE: PATIENT GIVEN ALL EDUCATION MATERIALS PRINTED IN [place] AND ALSO REVIEWED WITH FAMILY, LICHA AND KANDACE. PATIENT TELE RETURNED TO CARDIO UNIT. IV TO LEFT AC REMOVED MANUAL PRESSURE APPLIED. PATIENT TAKEN TO PRIVATE AUTO WITH ALL BELONGINGS BY COMPLIANCE AUDITOR ON 5LNC. PATIENT ABLE TO TRANSFER TO WHEELCHAIR WITHOUT INCIDENCES.
[2020-11-11] MEDS ORDERED: APIXABAN 5 MG TAB PO SCH (22:00)
== END 2020-11-11 17:30 | disposition home health service (06) | DRG 871 ==
LOC: EDBD 14:45 → ER 14:52 → TELE 17:34 → TELE-CENTR 10-28 22:30 → TELE-WESTW 11-08 18:07
PROVIDERS: ADMIT Nurse Practitioner Acute Care; ATTEND Internal Medicine
PROC: XW033E5 Introduction of Remdesivir Anti-infective into Peripheral Vein, Percutaneous Approach, New Technology Group 5 (ICD-10-PCS; 2020-10-23)
PROC: XW13325 Transfusion of Convalescent Plasma (Nonautologous) into Peripheral Vein, Percutaneous Approach, New Technology Group 5 (ICD-10-PCS; principal; 2020-10-24)
DX: A41.89 Other specified sepsis (principal); U07.1 COVID-19; J12.89 Other viral pneumonia; J96.01 Acute respiratory failure with hypoxia; I26.99 Other pulmonary embolism without acute cor pulmonale; E44.0 Moderate protein-calorie malnutrition; E87.1 Hypo-osmolality and hyponatremia; D68.59 Other primary thrombophilia; E87.3 Alkalosis; I82.401 Acute embolism and thrombosis of unspecified deep veins of right lower extremity; E87.6 Hypokalemia; I10 Essential (primary) hypertension; E78.5 Hyperlipidemia, unspecified; D64.9 Anemia, unspecified; E66.3 Overweight; R73.03 Prediabetes; R55 Syncope and collapse; G90.9 Disorder of the autonomic nervous system, unspecified; Z68.25 Body mass index [BMI] 25.0-25.9, adult; Z90.710 Acquired absence of both cervix and uterus; Z68.26 Body mass index [BMI] 26.0-26.9, adult
CPT/HCPCS: 36415; 36600; 70450; 71045; 71275; 80048; 80053; 80061; 81001; 82306; 82728; 82805; 82962; 83036; 83540; 83550; 83615; 83735; 83880; 84132; 84439; 84443; 84480; 84484; 85025; 85379; 85610; 86141; 86850; 86900; 86901; 87040; 93306; 93886; 93926; 93970; 94640; 96365; 96375; 97163; 99291; G0378; J0696; J1100; J1815; J2001; J2185; J2405; J2543; J3490

== ENCOUNTER 2021-05-06 16:23 | Emergency (ER) | payer OTHER, MEDICAID ==
[~2021-05-06] VITALS: Ht 167.6 cm; Wt 90.7 kg
[~2021-05-06 16:23] MED LIST changes: +ALBUAER3 IN; +APIX5TAB PO; +ASCO10003 PO; -ASPI-247; +BUDE2SUS3 IN; +CHOL1CAP47 PO; +PANT40TA2 PO; +ZINC220T6 PO
[2021-05-06 19:24] LABS: Basophils # (auto) 0.1 10 ^3/uL (0-0.2); Basophils % (auto) 0.9 % (0.0-2.0); Eosinophils # (auto) 0 10 ^3/uL (0-0.8); Eosinophils % (auto) 0.5 % (0.0-7.0); Hematocrit 41.1 % (36.0-46.0); Hemoglobin 13.9 g/dL (12.2-16.2); Mean Corpuscular Hemoglobin 29.5 pg (28.0-32.0); Mean Corpuscular Hgb Conc. 33.7 g/dL (32.0-36.0); Mean Corpuscular Volume 87.3 fL (80.0-100.0); Monocytes # (auto) 0.3 10 ^3/uL (0-1.3); Monocytes % (auto) 4.4 % (0.0-12.0); Neutrophils # (auto) 5.4 10 ^3/uL (1.6-8.6); Neutrophils % (auto) 69.2 % (37.0-80.0); Platelet Count (auto) 197 10^3/uL (140-450); Red Cell Distribution Width 14.7 % (11.8-14.3); White Blood Cell 7.8 10^3/uL (4.4-10.8)
[2021-05-06 19:55] LABS: Albumin 4.1 g/dL (3.4-5.0); Calcium 9.7 mg/dL (8.5-10.1); Potassium 3.5 mmol/L (3.5-5.1)
[2021-05-06 20:05] LABS: BUN/Creatinine Ratio 27.5; Bilirubin, Total 0.6 mg/dL (0.2-1.0); Total Protein 7.6 g/dL (6.4-8.2)
[2021-05-06] MEDS ORDERED: IOHEXOL 300 MG/ML 100ML BOTTLE IJ ONE (20:32)
[2021-05-06] MEDS ORDERED: ACETAMINOPHEN 500 MG TAB PO ONE (22:00)
[2021-05-06 23:00] VITALS: BP 120/68
== END 2021-05-06 23:17 | disposition home or self-care (01) ==
LOC: ER 16:23
DX: S16.1XXA Strain of muscle, fascia and tendon at neck level, initial encounter (principal); M54.5 Low back pain; R07.89 Other chest pain; I71.2 Thoracic aortic aneurysm, without rupture; R51.9 Headache, unspecified; I10 Essential (primary) hypertension; E78.5 Hyperlipidemia, unspecified; J44.9 Chronic obstructive pulmonary disease, unspecified; Z79.899 Other long term (current) drug therapy; Z90.710 Acquired absence of both cervix and uterus; V49.49XA Driver injured in collision with other motor vehicles in traffic accident, initial encounter; Y93.89 Activity, other specified; Y92.488 Other paved roadways as the place of occurrence of the external cause; Y99.8 Other external cause status
CPT/HCPCS: 36415; 70450; 71260; 72125; 74177; 80053; 85025; 99285; Q9967